=== PATIENT | female | born 1960 | race Hispanic/Latino ===

== ENCOUNTER → 2018-10-21 | Outpatient (CLI) | payer OTHER | END | disposition home or self-care (01) | LOC: RAH 10:32 | PROVIDERS: ATTEND Internal Medicine Gastroenterology | DX: R14.0 Abdominal distension (gaseous) (principal); R10.10 Upper abdominal pain, unspecified; R11.0 Nausea | CPT/HCPCS: 78264; A9541 ==

== ENCOUNTER → 2019-01-05 | Outpatient (CLI) | payer OTHER | END | disposition home or self-care (01) | LOC: RAH 08:06 | PROVIDERS: ATTEND Internal Medicine Gastroenterology | DX: K21.9 Gastro-esophageal reflux disease without esophagitis (principal); K76.0 Fatty (change of) liver, not elsewhere classified; Z90.49 Acquired absence of other specified parts of digestive tract | CPT/HCPCS: 74240; 76700 ==

== ENCOUNTER → 2019-11-08 | Outpatient (CLI) | payer OTHER | END | disposition home or self-care (01) | LOC: RAH 11:03 | PROVIDERS: ATTEND Internal Medicine Cardiovascular Disease | DX: Z13.6 Encounter for screening for cardiovascular disorders (principal) | CPT/HCPCS: 75571 ==

== ENCOUNTER 2020-02-10 10:30 | Emergency (ER) | payer OTHER ==
[2020-02-10] MEDS ORDERED: KETOROLAC TROMETHAMINE 60 MG/2 ML VIAL ONE (12:36)
[2020-02-10] MEDS ORDERED: ACETAMINOPHEN-CODEINE 300/30MG TAB ONE (12:37)
== END 2020-02-10 13:17 | disposition home or self-care (01) ==
LOC: EDH 10:30
DX: S33.5XXA Sprain of ligaments of lumbar spine, initial encounter (principal); S73.101A Unspecified sprain of right hip, initial encounter; I10 Essential (primary) hypertension; Z91.041 Radiographic dye allergy status; V49.9XXA Car occupant (driver) (passenger) injured in unspecified traffic accident, initial encounter; Y93.89 Activity, other specified; Y92.488 Other paved roadways as the place of occurrence of the external cause; Y99.8 Other external cause status
CPT/HCPCS: 72100; 73502; 96372; 99284; J1885

== ENCOUNTER 2020-05-27 22:07 | Inpatient (IN) | payer OTHER ==
[~2020-05-27] VITALS: Ht 149.9 cm; Wt 98.9 kg
[2020-05-27] MEDS ORDERED: LORAZEPAM 2 MG/ML 1 ML VIAL ONE (22:41)
[2020-05-27 22:49] LABS: ABG BASE EXCESS -1.6 mmol/L (-2.0-3.0); ABG HCO3 22.6 mmol/L (21.0-28.0); ABG OXYGEN SATURATION 85.4 % (95.0-99.0); ABG PCO2 37 mmHg (32-45)
[2020-05-27] MEDS ORDERED: CEFTRIAXONE 1G VIAL ONE (22:59)
[2020-05-27] MEDS ORDERED: DEXAMETHASONE SOD PHOSPHATE 10MG/ML 1ML VIAL ONE (22:59)
[2020-05-27] MEDS ORDERED: AZITHROMYCIN 250 MG TABLET PO ONE (23:00)
[2020-05-27 23:06] LABS: BASOPHILS % (AUTO) 0.2 % (0.0-5.0); HEMATOCRIT 43.3 % (36-48); LYMPHOCYTES % (AUTO) 9.8 % (21.0-51.0); MEAN CORPUSCULAR HEMOGLOBIN 29.7 pg (27.0-33.0); MEAN CORPUSCULAR HGB CONC 34.2 g/dL (32.0-36.0); MEAN CORPUSCULAR VOLUME 86.8 fL (79-99); MONOCYTES % (AUTO) 5.2 % (3.0-13.0); NUCLEATED RED BLOOD CELLS 0.2 % (0.0-0.19); PLATELET COUNT (AUTO) 353 K/uL (130-400); RED BLOOD CELL COUNT(AUTO) 4.99 MIL/uL (4.00-5.50); RED CELL DISTRIBUTION WIDTH 12.5 % (11.0-15.5); WHITE BLOOD COUNT (AUTO) 9.8 K/uL (4.8-10.8)
[2020-05-27] MEDS ORDERED: 0.9%NACL 50ML 50 ML IV ONE (23:10)
[2020-05-27 23:20] LABS: CREATININE 2.2 mg/dL (0.5-1.5); POTASSIUM 3.4 mmol/L (3.5-5.1)
[2020-05-27 23:21] LABS: INR 0.97 (0.85-1.15); PARTIAL THROMBOPLASTIN TIME 24.8 SEC (26.3-35.5); PROTHROMBIN TIME 10.5 SEC (9.6-11.6)
[2020-05-27] MEDS ORDERED: 0.9%NACL 1000ML 1,000 ML IV ONE (23:23)
[2020-05-27 23:24] LABS: ALBUMIN 2.7 g/dL (3.5-5.0); BILIRUBIN,TOTAL 0.9 mg/dL (0.2-1.0); TOTAL PROTEIN, SERUM 7.2 g/dL (6.0-8.3)
[2020-05-28] MEDS ORDERED: HYDRALAZINE 20MG/ML VIAL IV PRN
[2020-05-28] MEDS ORDERED: ACETAMINOPHEN 325 MG TAB PO PRN
[2020-05-28] MEDS ORDERED: ONDANSETRON 4MG INJ IV PRN
[2020-05-28] MEDS ORDERED: ERGOCALCIFEROL (VITAMIN D2) 50,000 UNIT CAPSULE PO ONE
[2020-05-28 01:27] LABS: CRP QUANTITATIVE 246.8 mg/L (0.00-9.0)
[2020-05-28] MEDS ORDERED: POTASSIUM CHLORIDE 10MEQ/100ML 100 ML IV ONE (02:00)
[2020-05-28] MEDS ORDERED: ALBUTEROL INHALER 90MCG/INH IH ONE (02:01)
[2020-05-28] MEDS ORDERED: ERGOCALCIFEROL (VITAMIN D2) 50,000 UNIT CAPSULE ONE (02:01)
[2020-05-28] MEDS ORDERED: LIDOCAINE HCL-MPF 1% 2ML VIAL ONE (02:03)
[2020-05-28 03:07] LABS: BASOPHILS % (AUTO) 0.3 % (0.0-5.0); EOSINOPHILS % (AUTO) 0.7 % (0.0-8.0); HEMATOCRIT 43.1 % (36-48); LYMPHOCYTES % (AUTO) 10.7 % (21.0-51.0); MEAN CORPUSCULAR HEMOGLOBIN 29.9 pg (27.0-33.0); MEAN CORPUSCULAR HGB CONC 33.6 g/dL (32.0-36.0); MEAN CORPUSCULAR VOLUME 88.9 fL (79-99); MONOCYTES % (AUTO) 4.4 % (3.0-13.0); NEUTROPHILS % (AUTO) 81.9 % (40.0-77.0); NUCLEATED RED BLOOD CELLS 0.2 % (0.0-0.19); PLATELET COUNT (AUTO) 307 K/uL (130-400); RED BLOOD CELL COUNT(AUTO) 4.85 MIL/uL (4.00-5.50); RED CELL DISTRIBUTION WIDTH 12.5 % (11.0-15.5); WHITE BLOOD COUNT (AUTO) 8.7 K/uL (4.8-10.8)
[2020-05-28 03:24] LABS: ALBUMIN 2.6 g/dL (3.5-5.0); BILIRUBIN,TOTAL 0.7 mg/dL (0.2-1.0); CREATININE 2.2 mg/dL (0.5-1.5); POTASSIUM 3.5 mmol/L (3.5-5.1); TOTAL PROTEIN, SERUM 7.2 g/dL (6.0-8.3)
[2020-05-28 03:42] LABS: CRP QUANTITATIVE 224.5 mg/L (0.00-9.0)
[2020-05-28] MEDS: ALBUTEROL INHALER 90MCG/INH IH SCH ×7 (04:00→22:52)
[2020-05-28] MEDS: SOLU-MEDROL 40MG VIAL IVP SCH ×4 (08:00→22:52)
[2020-05-28] MEDS ORDERED: NOREPINEPHRIN 4MG/NS 250ML 250 ML IV ONE (08:09)
[2020-05-28] MEDS: ASCORBIC ACID 500 MG TAB PO SCH (09:00)
[2020-05-28] MEDS ORDERED: ENOXAPARIN SODIUM 40 MG/0.4 ML SYRINGE SQ SCH (09:00)
[2020-05-28] MEDS: ENOXAPARIN SODIUM 40 MG/0.4 ML SYRINGE SQ SCH ×2 (09:00→22:48)
[2020-05-28] MEDS: ZINC SULFATE 220 CAPSULE PO SCH (09:00)
[2020-05-28 09:15] LABS: ABG BASE EXCESS -3.3 mmol/L (-2.0-3.0); ABG HCO3 21.2 mmol/L (21.0-28.0); ABG OXYGEN SATURATION 90.8 % (95.0-99.0); ABG PCO2 37 mmHg (32-45)
[2020-05-28] MEDS ORDERED: SOLU-MEDROL 40MG VIAL ONE (09:58)
[2020-05-28] MEDS ORDERED: ASCORBIC ACID 500 MG TAB ONE (09:58)
[2020-05-28] MEDS ORDERED: ZINC SULFATE 220 CAPSULE ONE (09:59)
[2020-05-28] MEDS ORDERED: ENOXAPARIN SODIUM 40 MG/0.4 ML SYRINGE SQ ONE (09:59)
[2020-05-28] MEDS ORDERED: FUROSEMIDE 40MG VIAL IV SCH ×2 (10:38→10:45)
[2020-05-28] MEDS: FUROSEMIDE 40MG VIAL IV SCH ×2 (10:45→22:52)
[2020-05-28] MEDS ORDERED: FUROSEMIDE 20MG VIAL ONE (11:11)
[2020-05-28] MEDS ORDERED: FUROSEMIDE 40MG VIAL ONE (11:11)
[2020-05-28 13:28] LABS: ABG BASE EXCESS -1.2 mmol/L (-2.0-3.0); ABG HCO3 23.4 mmol/L (21.0-28.0); ABG OXYGEN SATURATION 97.9 % (95.0-99.0); ABG PCO2 39 mmHg (32-45)
[2020-05-28 17:48] VITALS: BP 125/68
[2020-05-28] MEDS ORDERED: 0.9% NACL 250ML 250 ML IV ONE (22:25)
[2020-05-28] MEDS: AZITHROMYCIN 500MG+NS 250ML 250 ML IV SCH ×2 (22:49)
[2020-05-28] MEDS: POTASSIUM CHLORIDE 10MEQ/100ML 10 MEQ/100 ML ML IV SCH ×2 (22:49)
[2020-05-28] MEDS: CEFTRIAXONE 1G VIAL IV SCH ×2 (22:52)
[2020-05-28] MEDS ORDERED: DIAZEPAM 5 MG TABLET ONE (23:34)
[2020-05-28] MEDS: DIAZEPAM 5 MG TABLET PO PRN (23:38)
[2020-05-29] VITALS (15 sets, daily range): BP systolic 94–153; BP diastolic 43–76
[2020-05-29 03:57] LABS: BASOPHILS % (AUTO) 0.2 % (0.0-5.0); EOSINOPHILS % (AUTO) 0.5 % (0.0-8.0); HEMATOCRIT 38.4 % (36-48); LYMPHOCYTES % (AUTO) 7.8 % (21.0-51.0); MEAN CORPUSCULAR HEMOGLOBIN 29.4 pg (27.0-33.0); MEAN CORPUSCULAR HGB CONC 33.3 g/dL (32.0-36.0); MEAN CORPUSCULAR VOLUME 88.3 fL (79-99); MONOCYTES % (AUTO) 4.2 % (3.0-13.0); NEUTROPHILS % (AUTO) 85.5 % (40.0-77.0); NUCLEATED RED BLOOD CELLS 0.2 % (0.0-0.19); PLATELET COUNT (AUTO) 330 K/uL (130-400); RED BLOOD CELL COUNT(AUTO) 4.35 MIL/uL (4.00-5.50); RED CELL DISTRIBUTION WIDTH 12.4 % (11.0-15.5); WHITE BLOOD COUNT (AUTO) 12.4 K/uL (4.8-10.8)
[2020-05-29] MEDS: ALBUTEROL INHALER 90MCG/INH IH SCH ×5 (04:00→20:22)
[2020-05-29 04:08] LABS: ALBUMIN 2.5 g/dL (3.5-5.0); BILIRUBIN,TOTAL 0.4 mg/dL (0.2-1.0); CREATININE 1.8 mg/dL (0.5-1.5); CRP QUANTITATIVE 137.9 mg/L (0.00-9.0); MAGNESIUM 3.5 mg/dL (1.80-2.40); PHOSPHORUS 4.3 mg/dL (2.5-4.9); POTASSIUM 3.3 mmol/L (3.5-5.1); TOTAL PROTEIN, SERUM 6.9 g/dL (6.0-8.3)
[2020-05-29 04:39] LABS: ABG BASE EXCESS 1.9 mmol/L (-2.0-3.0); ABG HCO3 27.1 mmol/L (21.0-28.0); ABG OXYGEN SATURATION 87.8 % (95.0-99.0); ABG PCO2 45 mmHg (32-45)
[2020-05-29] MEDS ORDERED: 0.9% NACL 250ML 250 ML IV ONE ×2 (05:04→14:24)
[2020-05-29] MEDS: ENOXAPARIN SODIUM 40 MG/0.4 ML SYRINGE SQ SCH ×2 (08:57→20:32)
[2020-05-29] MEDS: ZINC SULFATE 220 CAPSULE PO SCH (08:57)
[2020-05-29] MEDS: SOLU-MEDROL 40MG VIAL IVP SCH ×3 (08:57→23:13)
[2020-05-29] MEDS: ASCORBIC ACID 500 MG TAB PO SCH (08:57)
[2020-05-29] MEDS: FUROSEMIDE 20MG VIAL IV SCH ×2 (09:59→20:59)
[2020-05-29] MEDS ORDERED: THIAMINE HCL 100 MG/ML 2ML VIAL IVP SCH (12:30)
[2020-05-29] MEDS ORDERED: PHARMACY COMMUNICATION MISC SCH (14:30)
[2020-05-29 17:03] LABS: APPEARANCE,URINE Clear (CLEAR); BILIRUBIN,URINE Negative (NEGATIVE); COLOR,URINE Yellow (YELLOW); GLUCOSE, URINE (UA) Negative (NEGATIVE); KETONES,URINE Negative (NEGATIVE); LEUKOCYTE ESTERASE ,URINE Negative (NEGATIVE); NITRATE,URINE Negative (NEGATIVE); OCCULT BLOOD,URINE Negative (NEGATIVE); PH,URINE 5.5 (5.0-8.0); PROTEIN,URINE Trace mg/dL (NEGATIVE)
[2020-05-29 17:30] LABS: RBC,URINE 0-1 /HPF (0-1)
[2020-05-29 17:31] LABS: BACTERIA,URINE Few /HPF (None Seen); OTHER CASTS, URINE WBC CASTS 1+ /LPF (None Seen); SQUAMOUS EPITHELIAL CELL,UR Few /HPF (0-2)
[2020-05-29] MEDS: THIAMINE HCL 100 MG/ML 2ML VIAL IVP SCH (17:48)
[2020-05-29] MEDS ORDERED: ESCI-8 PO (18:25)
[2020-05-29] MEDS ORDERED: BUPR200T3 PO (18:29)
[2020-05-29] MEDS ORDERED: HYDR25TA PO (18:29)
[2020-05-29] MEDS ORDERED: ESOM40CA54 PO (18:29)
[2020-05-29] MEDS ORDERED: LOSA100T58 PO (18:29)
[2020-05-29] MEDS: AZITHROMYCIN 500MG+NS 250ML 250 ML IV SCH (23:13)
[2020-05-29] MEDS: CEFTRIAXONE 1G VIAL IV SCH (23:13)
[2020-05-30] VITALS (8 sets, daily range): BP systolic 114–154; BP diastolic 56–81
[2020-05-30] MEDS: POTASSIUM CHLORIDE 10MEQ/100ML 10 MEQ/100 ML ML IV SCH
[2020-05-30] MEDS: ALBUTEROL INHALER 90MCG/INH IH SCH ×6 (04:13→21:45)
[2020-05-30 04:15] LABS: BASOPHILS % (AUTO) 0.1 % (0.0-5.0); HEMATOCRIT 38.3 % (36-48); LYMPHOCYTES % (AUTO) 6.2 % (21.0-51.0); MEAN CORPUSCULAR HEMOGLOBIN 29.8 pg (27.0-33.0); MEAN CORPUSCULAR HGB CONC 33.7 g/dL (32.0-36.0); MEAN CORPUSCULAR VOLUME 88.5 fL (79-99); NEUTROPHILS % (AUTO) 86.1 % (40.0-77.0); PLATELET COUNT (AUTO) 323 K/uL (130-400); RED BLOOD CELL COUNT(AUTO) 4.33 MIL/uL (4.00-5.50); RED CELL DISTRIBUTION WIDTH 12.4 % (11.0-15.5); WHITE BLOOD COUNT (AUTO) 13.7 K/uL (4.8-10.8)
[2020-05-30 04:32] LABS: ALBUMIN 2.6 g/dL (3.5-5.0); BILIRUBIN,TOTAL 0.4 mg/dL (0.2-1.0); CREATININE 1.3 mg/dL (0.5-1.5); CRP QUANTITATIVE 53.8 mg/L (0.00-9.0); MAGNESIUM 2.8 mg/dL (1.80-2.40); PHOSPHORUS 3.2 mg/dL (2.5-4.9); POTASSIUM 3.6 mmol/L (3.5-5.1); TOTAL PROTEIN, SERUM 6.8 g/dL (6.0-8.3); URIC ACID 7.6 mg/dL (2.6-7.2)
[2020-05-30] MEDS: ASCORBIC ACID 500 MG TAB PO SCH (08:31)
[2020-05-30] MEDS: ZINC SULFATE 220 CAPSULE PO SCH (08:32)
[2020-05-30] MEDS: ASPIRIN 325MG EC TAB PO SCH (08:32)
[2020-05-30] MEDS: SOLU-MEDROL 40MG VIAL IVP SCH ×2 (08:33→15:11)
[2020-05-30] MEDS: ENOXAPARIN SODIUM 40 MG/0.4 ML SYRINGE SQ SCH ×2 (08:33→21:44)
[2020-05-30] MEDS: ACETAMINOPHEN 325 MG TAB PO PRN (08:59)
[2020-05-30] MEDS: THIAMINE HCL 100 MG/ML 2ML VIAL IVP SCH (09:34)
[2020-05-30] MEDS ORDERED: 0.9% NACL 250ML 250 ML IV ONE (14:44)
[2020-05-30] MEDS: PHARMACY COMMUNICATION** REMDESIVIR ORDER MISC SCH ×2 (15:10→21:45)
[2020-05-30] MEDS ORDERED: PHARMACY COMMUNICATION MISC SCH (16:15)
[2020-05-30] MEDS ORDERED: REMDESIVIR (EUA) 520 200 MG in 0.9% NACL 250ML 250 ML IV ONE (20:00)
[2020-05-30] MEDS ORDERED: COMPOUND IV REFRIGERATED 1 EACH IVSOLN MISC PRN (20:00)
[2020-05-30] MEDS: Vitamin B Complex/Vit C/Folic Acid PO SCH (21:44)
[2020-05-31] MEDS: POTASSIUM CHLORIDE 10MEQ/100ML 10 MEQ/100 ML ML IV SCH
[2020-05-31] MEDS: CEFTRIAXONE 1G VIAL IV SCH (00:30)
[2020-05-31] MEDS: AZITHROMYCIN 500MG+NS 250ML 250 ML IV SCH (00:30)
[2020-05-31] MEDS: ALBUTEROL INHALER 90MCG/INH IH SCH ×6 (00:33→21:24)
[2020-05-31] MEDS: SOLU-MEDROL 40MG VIAL IVP SCH ×3 (00:33→17:10)
[2020-05-31] MEDS: PHARMACY COMMUNICATION** REMDESIVIR ORDER MISC SCH ×2 (00:34→04:00)
[2020-05-31 03:59] VITALS: BP 157/68
[2020-05-31 04:56] LABS: BASOPHILS % (AUTO) 0.2 % (0.0-5.0); HEMATOCRIT 37.3 % (36-48); LYMPHOCYTES % (AUTO) 5.4 % (21.0-51.0); MEAN CORPUSCULAR HEMOGLOBIN 29.1 pg (27.0-33.0); MEAN CORPUSCULAR VOLUME 88.4 fL (79-99); MONOCYTES % (AUTO) 2.9 % (3.0-13.0); NEUTROPHILS % (AUTO) 86.6 % (40.0-77.0); PLATELET COUNT (AUTO) 284 K/uL (130-400); RED BLOOD CELL COUNT(AUTO) 4.22 MIL/uL (4.00-5.50); RED CELL DISTRIBUTION WIDTH 12.2 % (11.0-15.5); WHITE BLOOD COUNT (AUTO) 13.1 K/uL (4.8-10.8)
[2020-05-31 05:11] LABS: ALBUMIN 2.5 g/dL (3.5-5.0); BILIRUBIN,DIRECT 0.2 mg/dL (0.0-0.3); BILIRUBIN,TOTAL 0.3 mg/dL (0.2-1.0); CREATININE 1.2 mg/dL (0.5-1.5); MAGNESIUM 2.3 mg/dL (1.80-2.40); PHOSPHORUS 2.7 mg/dL (2.5-4.9); POTASSIUM 3.5 mmol/L (3.5-5.1); TOTAL PROTEIN, SERUM 6.4 g/dL (6.0-8.3); URIC ACID 6.4 mg/dL (2.6-7.2)
[2020-05-31] MEDS ORDERED: PHARMACY COMMUNICATION MISC SCH ×2 (06:00→09:00)
[2020-05-31 07:00] VITALS: BP 149/74
[2020-05-31] MEDS: ASPIRIN 325MG EC TAB PO SCH (07:56)
[2020-05-31] MEDS: ASCORBIC ACID 500 MG TAB PO SCH (07:56)
[2020-05-31] MEDS: Vitamin B Complex/Vit C/Folic Acid PO SCH (07:56)
[2020-05-31] MEDS: ZINC SULFATE 220 CAPSULE PO SCH (07:56)
[2020-05-31] MEDS: ENOXAPARIN SODIUM 40 MG/0.4 ML SYRINGE SQ SCH ×2 (07:57→21:00)
[2020-05-31] MEDS: THIAMINE HCL 100 MG/ML 2ML VIAL IVP SCH (09:00)
[2020-05-31 11:00] VITALS: BP 160/82
[2020-05-31 15:00] VITALS: BP 149/75
[2020-05-31 16:53] LABS: APPEARANCE,URINE Clear (CLEAR); BILIRUBIN,URINE Negative (NEGATIVE); COLOR,URINE Dark Yellow (YELLOW); GLUCOSE, URINE (UA) Negative (NEGATIVE); KETONES,URINE Negative (NEGATIVE); LEUKOCYTE ESTERASE ,URINE Negative (NEGATIVE); NITRATE,URINE Negative (NEGATIVE); OCCULT BLOOD,URINE Negative (NEGATIVE); PROTEIN,URINE POS 1+ mg/dL (NEGATIVE)
[2020-05-31 17:05] LABS: BACTERIA,URINE Few /HPF (None Seen); RBC,URINE 0-1 /HPF (0-1); WBC,URINE 0-1 /HPF (0-1)
[2020-05-31] MEDS: PHENAZOPYRIDINE HCL 200 MG TABLET PO SCH ×2 (17:20→21:25)
[2020-05-31] MEDS: REMDESIVIR (EUA) 520 100 MG in 0.9% NACL 250ML 250 ML IV SCH (21:25)
[2020-05-31] MEDS: ENOXAPARIN SODIUM 80 MG/0.8 ML SQ SCH (21:25)
[2020-05-31] MEDS: DIAZEPAM 5 MG TABLET PO PRN (23:16)
[2020-06-01] VITALS (26 sets, daily range): BP systolic 84–203; BP diastolic 42–120
[2020-06-01] MEDS: AZITHROMYCIN 500MG+NS 250ML 250 ML IV SCH (00:16)
[2020-06-01] MEDS: ALBUTEROL INHALER 90MCG/INH IH SCH ×3 (00:16→12:00)
[2020-06-01] MEDS: SOLU-MEDROL 40MG VIAL IVP SCH (00:17)
[2020-06-01] MEDS: CEFTRIAXONE 1G VIAL IV SCH (00:17)
[2020-06-01] MEDS: POTASSIUM CHLORIDE 10MEQ/100ML 10 MEQ/100 ML ML IV SCH (01:18)
[2020-06-01 05:04] LABS: BASOPHILS % (AUTO) 0.4 % (0.0-5.0); HEMATOCRIT 38.7 % (36-48); MEAN CORPUSCULAR HEMOGLOBIN 29.5 pg (27.0-33.0); MEAN CORPUSCULAR HGB CONC 33.6 g/dL (32.0-36.0); MONOCYTES % (AUTO) 2.6 % (3.0-13.0); NEUTROPHILS % (AUTO) 83.7 % (40.0-77.0); PLATELET COUNT (AUTO) 280 K/uL (130-400); RED CELL DISTRIBUTION WIDTH 12.4 % (11.0-15.5); WHITE BLOOD COUNT (AUTO) 14.1 K/uL (4.8-10.8)
[2020-06-01 05:20] LABS: ABG BASE EXCESS 3.9 mmol/L (-2.0-3.0); ABG HCO3 27.3 mmol/L (21.0-28.0); ABG OXYGEN SATURATION 89.3 % (95.0-99.0); ABG PCO2 37 mmHg (32-45)
[2020-06-01 05:26] LABS: ALBUMIN 2.5 g/dL (3.5-5.0); BILIRUBIN,TOTAL 0.4 mg/dL (0.2-1.0); CREATININE 0.9 mg/dL (0.5-1.5); CRP QUANTITATIVE 42.8 mg/L (0.00-9.0); POTASSIUM 3.7 mmol/L (3.5-5.1); TOTAL PROTEIN, SERUM 6.4 g/dL (6.0-8.3)
[2020-06-01] MEDS: PHENAZOPYRIDINE HCL 200 MG TABLET PO SCH ×3 (09:00→21:05)
[2020-06-01] MEDS: ZINC SULFATE 220 CAPSULE PO SCH (09:00)
[2020-06-01] MEDS: THIAMINE HCL 100 MG/ML 2ML VIAL IVP SCH (09:00)
[2020-06-01] MEDS: ASPIRIN 325MG EC TAB PO SCH (09:00)
[2020-06-01] MEDS: Vitamin B Complex/Vit C/Folic Acid PO SCH (09:00)
[2020-06-01] MEDS: ENOXAPARIN SODIUM 80 MG/0.8 ML SQ SCH ×2 (09:00→20:53)
[2020-06-01] MEDS: ASCORBIC ACID 500 MG TAB PO SCH (09:00)
[2020-06-01] MEDS ORDERED: LORAZEPAM 2 MG/ML 1 ML VIAL ONE (10:06)
[2020-06-01] MEDS ORDERED: PROPOFOL 1000 MG/100 ML 100 ML IV ONE (10:44)
[2020-06-01] MEDS ORDERED: NOREPINEPHRIN 4MG/NS 250ML 250 ML IV SCH (11:00)
[2020-06-01] MEDS ORDERED: MIDAZOLAM 100MG-0.9% NS 100ML 100ML BAG IV ONE (11:00)
[2020-06-01] MEDS ORDERED: MIDAZOLAM 100MG-0.9% NS 100ML 100 ML IV SCH (11:15)
[2020-06-01 11:54] LABS: CREATININE 0.9 mg/dL (0.5-1.5); POTASSIUM 3.5 mmol/L (3.5-5.1)
[2020-06-01] MEDS ORDERED: DEXAMETHASONE 10MG/ML 1ML VIAL 6 MG in 0.9%NACL 50ML 50 ML IV SCH ×2 (12:00→12:15)
[2020-06-01] MEDS: FUROSEMIDE 20MG VIAL IV SCH ×2 (12:00→20:52)
[2020-06-01 12:01] LABS: ABG BASE EXCESS -0.2 mmol/L (-2.0-3.0); ABG HCO3 23.7 mmol/L (21.0-28.0); ABG OXYGEN SATURATION 96.9 % (95.0-99.0); ABG PCO2 37 mmHg (32-45)
[2020-06-01] MEDS ORDERED: PHARMACY COMMUNICATION MISC SCH (13:30)
[2020-06-01] MEDS ORDERED: VECURONIUM 10MG/10ML IV SCH (14:00)
[2020-06-01] MEDS ORDERED: NACL 0.9% IV SCH ×2 (14:00→14:15)
[2020-06-01] MEDS ORDERED: CISATRACURIUM BESYLATE IV SCH ×2 (14:00→14:15)
[2020-06-01] MEDS ORDERED: RENAL DOSE IV SCH (14:30)
[2020-06-01] MEDS ORDERED: ROCURONIUM 10MG/1ML SYR 10 MG/ML ML IV ONE (15:00)
[2020-06-01] MEDS: CISATRACURIUM BESYLATE 100 MG in 0.9%NACL 100ML 100 ML IV SCH (15:11)
[2020-06-01] MEDS ORDERED: VANCOMYCIN PROTOCOL PER PHARMACY IV SCH (15:30)
[2020-06-01] MEDS ORDERED: VANCOMYCIN 1G 1.5 GM in 0.9% NACL 250ML 250 ML IV ONE (16:00)
[2020-06-01] MEDS: MEROPENEM 500 MG VIAL IVP SCH (16:09)
[2020-06-01] MEDS: REMDESIVIR (EUA) 520 100 MG in 0.9% NACL 250ML 250 ML IV SCH (21:07)
[2020-06-01] MEDS: PROPOFOL 1000 MG/100 ML 100 ML IV SCH (23:03)
[2020-06-02] VITALS (47 sets, daily range): BP systolic 89–182; BP diastolic 30–86
[2020-06-02] MEDS: MEROPENEM 500 MG VIAL IVP SCH ×3 (00:12→15:25)
[2020-06-02] MEDS: FUROSEMIDE 20MG VIAL IV SCH ×3 (03:36→20:21)
[2020-06-02] MEDS: PROPOFOL 1000 MG/100 ML 100 ML IV SCH ×3 (03:41→13:56)
[2020-06-02 04:42] LABS: BASOPHILS % (AUTO) 0.4 % (0.0-5.0); HEMATOCRIT 38.6 % (36-48); LYMPHOCYTES % (AUTO) 7.3 % (21.0-51.0); MEAN CORPUSCULAR HEMOGLOBIN 29.2 pg (27.0-33.0); MEAN CORPUSCULAR HGB CONC 32.1 g/dL (32.0-36.0); MEAN CORPUSCULAR VOLUME 90.8 fL (79-99); MONOCYTES % (AUTO) 1.1 % (3.0-13.0); NEUTROPHILS % (AUTO) 81.8 % (40.0-77.0); PLATELET COUNT (AUTO) 271 K/uL (130-400); RED BLOOD CELL COUNT(AUTO) 4.25 MIL/uL (4.00-5.50); RED CELL DISTRIBUTION WIDTH 12.9 % (11.0-15.5); WHITE BLOOD COUNT (AUTO) 13.5 K/uL (4.8-10.8)
[2020-06-02 05:08] LABS: ALBUMIN 2.2 g/dL (3.5-5.0); BILIRUBIN,DIRECT 0.1 mg/dL (0.0-0.3); BILIRUBIN,TOTAL 0.6 mg/dL (0.2-1.0); CRP QUANTITATIVE 125.7 mg/L (0.00-9.0); TOTAL PROTEIN, SERUM 5.7 g/dL (6.0-8.3)
[2020-06-02 05:20] LABS: MAGNESIUM 1.9 mg/dL (1.80-2.40); PHOSPHORUS 4.1 mg/dL (2.5-4.9); POTASSIUM 3.4 mmol/L (3.5-5.1)
[2020-06-02] MEDS: VANCOMYCIN 750MG + NS 250 ML IV SCH ×4 (06:28→17:52)
[2020-06-02 06:59] LABS: ABG BASE EXCESS 3.7 mmol/L (-2.0-3.0); ABG HCO3 26.2 mmol/L (21.0-28.0); ABG OXYGEN SATURATION 95.7 % (95.0-99.0); ABG PCO2 33 mmHg (32-45)
[2020-06-02] MEDS ORDERED: CISATRACURIUM BESYLATE IV SCH (07:15)
[2020-06-02] MEDS ORDERED: NACL 0.9% IV SCH (07:15)
[2020-06-02] MEDS: PHENAZOPYRIDINE HCL 200 MG TABLET PO SCH ×3 (08:32→21:21)
[2020-06-02] MEDS: THIAMINE HCL 100 MG/ML 2ML VIAL IVP SCH (08:32)
[2020-06-02] MEDS: ASCORBIC ACID 500 MG TAB PO SCH (08:40)
[2020-06-02] MEDS: Vitamin B Complex/Vit C/Folic Acid PO SCH (08:40)
[2020-06-02] MEDS: ASPIRIN 325MG EC TAB PO SCH (08:40)
[2020-06-02] MEDS: ENOXAPARIN SODIUM 80 MG/0.8 ML SQ SCH ×2 (08:40→20:23)
[2020-06-02] MEDS: ZINC SULFATE 220 CAPSULE PO SCH (08:41)
[2020-06-02] MEDS ORDERED: DEXAMETHASONE 4 MG TAB PO SCH (09:00)
[2020-06-02] MEDS ORDERED: POTASSIUM CHLORIDE 20MEQ/100ML 100 ML IV PRN (09:30)
[2020-06-02] MEDS ORDERED: LIDOCAINE HCL-MPF 1% 2ML VIAL IV PRN (09:30)
[2020-06-02] MEDS ORDERED: MIDAZOLAM 50MG-0.9% NS 50ML 50 ML BAG IV SCH (09:30)
[2020-06-02] MEDS ORDERED: POTASSIUM CHLORIDE 20 MEQ/100 ML BAG IV SCH (10:15)
[2020-06-02] MEDS ORDERED: POTASSIUM CHLORIDE 20MEQ/100ML 100 ML IV SCH (11:45)
[2020-06-02] MEDS: MIDAZOLAM 100MG-0.9% NS 100ML 100 ML IV SCH (13:45)
[2020-06-02] MEDS ORDERED: FENTANYL CITRATE PF 0.05 MG/ML 1,000 MCG in 0.9%NACL 100ML 100 ML IVPB SCH (15:00)
[2020-06-02] MEDS ORDERED: FENTANYL CITRATE PF 50 MCG/1 ML 2ML VIAL IVP STA (15:18)
[2020-06-02] MEDS: FENTANYL 2500MCG+NS 250ML 250 ML IV SCH (15:42)
[2020-06-02] MEDS: REMDESIVIR (EUA) 520 100 MG in 0.9% NACL 250ML 250 ML IV SCH (20:00)
[2020-06-02] MEDS: POTASSIUM CHLORIDE 20MEQ/100ML 100 ML IV PRN (20:37)
[2020-06-03] VITALS (63 sets, daily range): BP systolic 104–173; BP diastolic 60–111
[2020-06-03] MEDS: MEROPENEM 500 MG VIAL IVP SCH ×3 (02:45→17:19)
[2020-06-03 04:05] LABS: HEMATOCRIT 42.5 % (36-48); MEAN CORPUSCULAR HEMOGLOBIN 29.6 pg (27.0-33.0); MEAN CORPUSCULAR VOLUME 92.6 fL (79-99); RED BLOOD CELL COUNT(AUTO) 4.59 MIL/uL (4.00-5.50); RED CELL DISTRIBUTION WIDTH 13.2 % (11.0-15.5); WHITE BLOOD COUNT (AUTO) 13.7 K/uL (4.8-10.8)
[2020-06-03 04:24] LABS: ALBUMIN 2.1 g/dL (3.5-5.0); BILIRUBIN,DIRECT 0.2 mg/dL (0.0-0.3); BILIRUBIN,TOTAL 0.6 mg/dL (0.2-1.0); CREATININE 1.1 mg/dL (0.5-1.5); POTASSIUM 4.1 mmol/L (3.5-5.1); TOTAL PROTEIN, SERUM 6.1 g/dL (6.0-8.3)
[2020-06-03 04:44] LABS: ABG HCO3 31.9 mmol/L (21.0-28.0); ABG OXYGEN SATURATION 90.7 % (95.0-99.0); ABG PCO2 56 mmHg (32-45)
[2020-06-03 05:08] LABS: CRP QUANTITATIVE 243.8 mg/L (0.00-9.0)
[2020-06-03] MEDS: VANCOMYCIN 750MG + NS 250 ML IV SCH ×4 (06:39→17:20)
[2020-06-03 07:06] LABS: ABG BASE EXCESS 6.1 mmol/L (-2.0-3.0); ABG HCO3 32.4 mmol/L (21.0-28.0); ABG OXYGEN SATURATION 92.3 % (95.0-99.0); ABG PCO2 53 mmHg (32-45)
[2020-06-03] MEDS ORDERED: PHARMACY COMMUNICATION MISC SCH (08:45)
[2020-06-03] MEDS: ZINC SULFATE 220 CAPSULE PO SCH (08:52)
[2020-06-03] MEDS: ENOXAPARIN SODIUM 80 MG/0.8 ML SQ SCH ×2 (08:52→22:16)
[2020-06-03] MEDS: Vitamin B Complex/Vit C/Folic Acid PO SCH (08:52)
[2020-06-03] MEDS: ASCORBIC ACID 500 MG TAB PO SCH (08:52)
[2020-06-03] MEDS: ASPIRIN 325MG EC TAB PO SCH (08:53)
[2020-06-03] MEDS: THIAMINE HCL 100 MG/ML 2ML VIAL IVP SCH (08:53)
[2020-06-03] MEDS ORDERED: CISATRACURIUM BESYLATE IV SCH (09:45)
[2020-06-03] MEDS ORDERED: NACL 0.9% IV SCH (09:45)
[2020-06-03] MEDS: MIDAZOLAM 100MG-0.9% NS 100ML 100 ML IV SCH (09:59)
[2020-06-03] MEDS: REMDESIVIR (EUA) 520 100 MG in 0.9% NACL 250ML 250 ML IV SCH (10:20)
[2020-06-03] MEDS: FUROSEMIDE 20MG VIAL IV SCH ×2 (11:35→22:15)
[2020-06-03] MEDS: DEXAMETHASONE SOD PHOSPHATE 4 MG/ML 1ML VIAL IVP SCH (22:16)
[2020-06-04] VITALS (52 sets, daily range): BP systolic 101–158; BP diastolic 60–82
[2020-06-04] MEDS: FUROSEMIDE 20MG VIAL IV SCH ×3 (04:00→21:26)
[2020-06-04 04:04] LABS: MEAN CORPUSCULAR HEMOGLOBIN 29.2 pg (27.0-33.0); MEAN CORPUSCULAR HGB CONC 31.3 g/dL (32.0-36.0); MEAN CORPUSCULAR VOLUME 93.3 fL (79-99); RED BLOOD CELL COUNT(AUTO) 4.18 MIL/uL (4.00-5.50); RED CELL DISTRIBUTION WIDTH 13.4 % (11.0-15.5); WHITE BLOOD COUNT (AUTO) 12.8 K/uL (4.8-10.8)
[2020-06-04] MEDS: VANCOMYCIN 750MG + NS 250 ML IV SCH ×4 (06:34→21:28)
[2020-06-04 07:04] LABS: ABG BASE EXCESS 8.2 mmol/L (-2.0-3.0); ABG HCO3 33.8 mmol/L (21.0-28.0); ABG OXYGEN SATURATION 88.7 % (95.0-99.0); ABG PCO2 51 mmHg (32-45)
[2020-06-04] MEDS ORDERED: DOCUSATE SODIUM 100 MG CAP PO SCH (08:45)
[2020-06-04] MEDS: DEXAMETHASONE SOD PHOSPHATE 4 MG/ML 1ML VIAL IVP SCH ×2 (09:50→21:26)
[2020-06-04] MEDS: Vitamin B Complex/Vit C/Folic Acid PO SCH (09:51)
[2020-06-04] MEDS: THIAMINE HCL 100 MG/ML 2ML VIAL IVP SCH (09:51)
[2020-06-04] MEDS: ENOXAPARIN SODIUM 80 MG/0.8 ML SQ SCH ×2 (09:51→21:27)
[2020-06-04] MEDS: ASCORBIC ACID 500 MG TAB PO SCH (09:51)
[2020-06-04] MEDS: ZINC SULFATE 220 CAPSULE PO SCH (09:52)
[2020-06-04] MEDS: REMDESIVIR (EUA) 520 100 MG in 0.9% NACL 250ML 250 ML IV SCH (09:55)
[2020-06-04] MEDS: MEROPENEM 500 MG VIAL IVP SCH ×3 (09:55→15:50)
[2020-06-04] MEDS: ASPIRIN 325MG EC TAB PO SCH (09:55)
[2020-06-04] MEDS: CISATRACURIUM BESYLATE 100 MG in 0.9%NACL 100ML 100 ML IV SCH (11:50)
[2020-06-04] MEDS: MIDAZOLAM 100MG-0.9% NS 100ML 100 ML IV SCH (11:51)
[2020-06-04] MEDS ORDERED: VANCOMYCIN 750MG + NS 250 ML IV SCH ×2 (12:00)
[2020-06-04] MEDS ORDERED: REMDESIVIR (EUA) 520 100 MG in 0.9% NACL 250ML 250 ML IV ONE (14:00)
[2020-06-04] MEDS ORDERED: CISATRACURIUM BESYLATE IV SCH (15:30)
[2020-06-04] MEDS ORDERED: NACL 0.9% IV SCH (15:30)
[2020-06-04] MEDS: DOCUSATE NA 100MG/10ML UDCUP PO SCH (21:27)
[2020-06-04] MEDS ORDERED: MAGNESIUM HYDROXIDE 30 ML/UDCUP PO PRN (22:15)
[2020-06-05] VITALS (53 sets, daily range): BP systolic 124–169; BP diastolic 64–90
[2020-06-05 04:57] LABS: BASOPHILS % (AUTO) 0.2 % (0.0-5.0); HEMATOCRIT 39.5 % (36-48); LYMPHOCYTES % (AUTO) 3.9 % (21.0-51.0); MEAN CORPUSCULAR HEMOGLOBIN 29.3 pg (27.0-33.0); MEAN CORPUSCULAR HGB CONC 31.6 g/dL (32.0-36.0); MEAN CORPUSCULAR VOLUME 92.7 fL (79-99); NEUTROPHILS % (AUTO) 88.7 % (40.0-77.0); PLATELET COUNT (AUTO) 262 K/uL (130-400); RED BLOOD CELL COUNT(AUTO) 4.26 MIL/uL (4.00-5.50); RED CELL DISTRIBUTION WIDTH 13.2 % (11.0-15.5); WHITE BLOOD COUNT (AUTO) 12.1 K/uL (4.8-10.8)
[2020-06-05] MEDS: FUROSEMIDE 20MG VIAL IV SCH ×2 (05:11→21:06)
[2020-06-05 05:30] LABS: ALBUMIN 1.9 g/dL (3.5-5.0); BILIRUBIN,DIRECT 0.1 mg/dL (0.0-0.3); BILIRUBIN,TOTAL 0.3 mg/dL (0.2-1.0); CRP QUANTITATIVE 121.5 mg/L (0.00-9.0); POTASSIUM 3.8 mmol/L (3.5-5.1); THYROID STIMULATING HORMONE 0.33 uIU/mL (0.36-3.74)
[2020-06-05 08:17] LABS: ABG BASE EXCESS 6.6 mmol/L (-2.0-3.0); ABG HCO3 30.9 mmol/L (21.0-28.0); ABG PCO2 43 mmHg (32-45)
[2020-06-05] MEDS: DOCUSATE NA 100MG/10ML UDCUP PO SCH ×2 (08:20→21:07)
[2020-06-05] MEDS: LACTULOSE 20 GM/30 ML UDCUP PO PRN (08:20)
[2020-06-05] MEDS: ENOXAPARIN SODIUM 80 MG/0.8 ML SQ SCH ×2 (08:20→21:06)
[2020-06-05] MEDS: MEROPENEM 500 MG VIAL IVP SCH ×3 (08:20→17:23)
[2020-06-05] MEDS: Vitamin B Complex/Vit C/Folic Acid PO SCH (08:20)
[2020-06-05] MEDS: ASPIRIN 325MG EC TAB PO SCH (08:20)
[2020-06-05] MEDS: DEXAMETHASONE SOD PHOSPHATE 4 MG/ML 1ML VIAL IVP SCH ×2 (08:20→21:06)
[2020-06-05] MEDS: ASCORBIC ACID 500 MG TAB PO SCH (08:21)
[2020-06-05] MEDS: ZINC SULFATE 220 CAPSULE PO SCH (08:21)
[2020-06-05 08:40] LABS: HEMOGLOBIN A1C 6.8 % (4.0-6.0)
[2020-06-05] MEDS: VANCOMYCIN 750MG + NS 250 ML IV SCH ×4 (08:48→21:12)
[2020-06-05] MEDS: THIAMINE HCL 100 MG/ML 2ML VIAL IVP SCH (09:19)
[2020-06-05] MEDS ORDERED: COMPOUND IV REFRIGERATED 1 EACH IVSOLN MISC PRN (12:45)
[2020-06-05 13:48] LABS: CREATININE 0.8 mg/dL (0.5-1.5); MAGNESIUM 2.3 mg/dL (1.80-2.40); POTASSIUM 4.8 mmol/L (3.5-5.1)
[2020-06-05] MEDS: INSULIN HUMULIN R 100 UNIT/ML 3ML SQ SCH ×3 (13:59→21:00)
[2020-06-05] MEDS: INSULIN GLARGINE 100 UNITS/ML 10 ML VIAL SQ SCH (21:00)
[2020-06-06] VITALS (70 sets, daily range): BP systolic 88–199; BP diastolic 54–124
[2020-06-06] MEDS: MEROPENEM 500 MG VIAL IVP SCH ×3 (00:36→16:23)
[2020-06-06 04:07] LABS: BASOPHILS % (AUTO) 0.2 % (0.0-5.0); HEMATOCRIT 37.6 % (36-48); LYMPHOCYTES % (AUTO) 3.4 % (21.0-51.0); MEAN CORPUSCULAR HEMOGLOBIN 29.5 pg (27.0-33.0); MEAN CORPUSCULAR HGB CONC 31.6 g/dL (32.0-36.0); MEAN CORPUSCULAR VOLUME 93.1 fL (79-99); MONOCYTES % (AUTO) 4.8 % (3.0-13.0); NEUTROPHILS % (AUTO) 88.9 % (40.0-77.0); PLATELET COUNT (AUTO) 267 K/uL (130-400); RED BLOOD CELL COUNT(AUTO) 4.04 MIL/uL (4.00-5.50); RED CELL DISTRIBUTION WIDTH 12.9 % (11.0-15.5); WHITE BLOOD COUNT (AUTO) 15.5 K/uL (4.8-10.8)
[2020-06-06 04:11] LABS: ABG BASE EXCESS 6.8 mmol/L (-2.0-3.0); ABG HCO3 32.4 mmol/L (21.0-28.0); ABG OXYGEN SATURATION 97.3 % (95.0-99.0); ABG PCO2 50 mmHg (32-45)
[2020-06-06 04:28] LABS: ALBUMIN 1.7 g/dL (3.5-5.0); BILIRUBIN,DIRECT 0.1 mg/dL (0.0-0.3); BILIRUBIN,TOTAL 0.4 mg/dL (0.2-1.0); CREATININE 0.9 mg/dL (0.5-1.5); CRP QUANTITATIVE 42.6 mg/L (0.00-9.0); MAGNESIUM 2.2 mg/dL (1.80-2.40); PHOSPHORUS 4.8 mg/dL (2.5-4.9); POTASSIUM 4.3 mmol/L (3.5-5.1); TOTAL PROTEIN, SERUM 5.4 g/dL (6.0-8.3)
[2020-06-06] MEDS: INSULIN HUMULIN R 100 UNIT/ML 3ML SQ SCH ×3 (07:30→21:00)
[2020-06-06] MEDS: ASCORBIC ACID 500 MG TAB PO SCH (08:57)
[2020-06-06] MEDS: ZINC SULFATE 220 CAPSULE PO SCH (08:57)
[2020-06-06] MEDS: Vitamin B Complex/Vit C/Folic Acid PO SCH (08:58)
[2020-06-06] MEDS: DOCUSATE NA 100MG/10ML UDCUP PO SCH ×2 (08:58→20:37)
[2020-06-06] MEDS: DEXAMETHASONE SOD PHOSPHATE 4 MG/ML 1ML VIAL IVP SCH ×2 (08:58→20:37)
[2020-06-06] MEDS: FUROSEMIDE 20MG VIAL IV SCH ×2 (08:58→20:36)
[2020-06-06] MEDS: ASPIRIN 325MG EC TAB PO SCH (08:58)
[2020-06-06] MEDS: ENOXAPARIN SODIUM 80 MG/0.8 ML SQ SCH ×2 (08:59→20:38)
[2020-06-06] MEDS: THIAMINE HCL 100 MG/ML 2ML VIAL IVP SCH (08:59)
[2020-06-06] MEDS: VANCOMYCIN 750MG + NS 250 ML IV SCH ×4 (09:04→21:00)
[2020-06-06] MEDS ORDERED: PROPOFOL 1000 MG/100 ML IV PRN (16:15)
[2020-06-06] MEDS: FENTANYL 2500MCG+NS 250ML 250 ML IV SCH (16:17)
[2020-06-06] MEDS: CISATRACURIUM BESYLATE 100 MG in 0.9%NACL 100ML 100 ML IV SCH ×2 (16:18→22:26)
[2020-06-06] MEDS: PROPOFOL 1000 MG/100 ML 100 ML IV PRN (16:24)
[2020-06-06] MEDS: INSULIN GLARGINE 100 UNITS/ML 10 ML VIAL SQ SCH (21:00)
[2020-06-06] MEDS: MIDAZOLAM 100MG-0.9% NS 100ML 100 ML IV SCH (22:23)
[2020-06-07] VITALS (31 sets, daily range): BP systolic 98–141; BP diastolic 55–76
[2020-06-07] MEDS: MEROPENEM 500 MG VIAL IVP SCH ×3 (00:28→17:27)
[2020-06-07] MEDS: PROPOFOL 1000 MG/100 ML 100 ML IV PRN ×2 (01:22→08:39)
[2020-06-07] MEDS: CISATRACURIUM BESYLATE 100 MG in 0.9%NACL 100ML 100 ML IV SCH ×2 (03:11→20:32)
[2020-06-07 04:41] LABS: BASOPHILS % (AUTO) 0.1 % (0.0-5.0); HEMATOCRIT 35.4 % (36-48); LYMPHOCYTES % (AUTO) 3.5 % (21.0-51.0); MEAN CORPUSCULAR HEMOGLOBIN 29.4 pg (27.0-33.0); MEAN CORPUSCULAR HGB CONC 31.6 g/dL (32.0-36.0); MEAN CORPUSCULAR VOLUME 92.9 fL (79-99); MONOCYTES % (AUTO) 4.8 % (3.0-13.0); NEUTROPHILS % (AUTO) 89.8 % (40.0-77.0); PLATELET COUNT (AUTO) 281 K/uL (130-400); RED BLOOD CELL COUNT(AUTO) 3.81 MIL/uL (4.00-5.50); RED CELL DISTRIBUTION WIDTH 12.7 % (11.0-15.5); WHITE BLOOD COUNT (AUTO) 17.5 K/uL (4.8-10.8)
[2020-06-07 04:57] LABS: ALBUMIN 1.8 g/dL (3.5-5.0); BILIRUBIN,DIRECT 0.1 mg/dL (0.0-0.3); BILIRUBIN,TOTAL 0.4 mg/dL (0.2-1.0); CREATININE 0.9 mg/dL (0.5-1.5); MAGNESIUM 2.2 mg/dL (1.80-2.40); PHOSPHORUS 4.5 mg/dL (2.5-4.9); POTASSIUM 3.9 mmol/L (3.5-5.1); TOTAL PROTEIN, SERUM 5.3 g/dL (6.0-8.3)
[2020-06-07] MEDS: INSULIN HUMULIN R 100 UNIT/ML 3ML SQ SCH ×4 (06:47→21:00)
[2020-06-07] MEDS: Vitamin B Complex/Vit C/Folic Acid PO SCH (08:09)
[2020-06-07] MEDS: DEXAMETHASONE SOD PHOSPHATE 4 MG/ML 1ML VIAL IVP SCH ×2 (08:09→20:23)
[2020-06-07] MEDS: DOCUSATE NA 100MG/10ML UDCUP PO SCH ×2 (08:09→20:23)
[2020-06-07] MEDS: ASPIRIN 325MG EC TAB PO SCH (08:10)
[2020-06-07] MEDS: ASCORBIC ACID 500 MG TAB PO SCH (08:10)
[2020-06-07] MEDS: FUROSEMIDE 20MG VIAL IV SCH ×2 (08:10→20:23)
[2020-06-07] MEDS: ZINC SULFATE 220 CAPSULE PO SCH (08:10)
[2020-06-07] MEDS: ENOXAPARIN SODIUM 80 MG/0.8 ML SQ SCH ×2 (08:11→20:23)
[2020-06-07] MEDS: VANCOMYCIN 750MG + NS 250 ML IV SCH ×4 (08:12→20:35)
[2020-06-07] MEDS: THIAMINE HCL 100 MG/ML 2ML VIAL IVP SCH (09:34)
[2020-06-07] MEDS ORDERED: FENTANYL CITRATE PF 0.05 MG/ML 2,500 MCG in 0.9%NACL 100ML 250 ML IVPB SCH (17:30)
[2020-06-07] MEDS: INSULIN GLARGINE 100 UNITS/ML 10 ML VIAL SQ SCH (20:30)
[2020-06-08] VITALS (33 sets, daily range): BP systolic 112–157; BP diastolic 59–86
[2020-06-08] MEDS: ALBUTEROL INHALER 90MCG/INH IH SCH
[2020-06-08] MEDS: MEROPENEM 500 MG VIAL IVP SCH ×3 (00:14→17:13)
[2020-06-08] MEDS: MIDAZOLAM 100MG-0.9% NS 100ML 100 ML IV SCH ×2 (00:16→23:47)
[2020-06-08] MEDS: CISATRACURIUM BESYLATE 100 MG in 0.9%NACL 100ML 100 ML IV SCH ×2 (01:48→19:24)
[2020-06-08 03:35] LABS: ABG BASE EXCESS 7.3 mmol/L (-2.0-3.0); ABG HCO3 32.3 mmol/L (21.0-28.0); ABG OXYGEN SATURATION 91.6 % (95.0-99.0); ABG PCO2 47 mmHg (32-45)
[2020-06-08] MEDS: PROPOFOL 1000 MG/100 ML 100 ML IV PRN (05:00)
[2020-06-08 05:08] LABS: BASOPHILS % (AUTO) 0.1 % (0.0-5.0); HEMATOCRIT 29.9 % (36-48); LYMPHOCYTES % (AUTO) 3.5 % (21.0-51.0); MEAN CORPUSCULAR HEMOGLOBIN 29.6 pg (27.0-33.0); MEAN CORPUSCULAR HGB CONC 32.1 g/dL (32.0-36.0); MEAN CORPUSCULAR VOLUME 92.3 fL (79-99); MONOCYTES % (AUTO) 4.4 % (3.0-13.0); NEUTROPHILS % (AUTO) 89.6 % (40.0-77.0); PLATELET COUNT (AUTO) 254 K/uL (130-400); RED BLOOD CELL COUNT(AUTO) 3.24 MIL/uL (4.00-5.50); RED CELL DISTRIBUTION WIDTH 12.8 % (11.0-15.5)
[2020-06-08 05:22] LABS: CREATININE 0.9 mg/dL (0.5-1.5); MAGNESIUM 2.3 mg/dL (1.80-2.40); PHOSPHORUS 3.9 mg/dL (2.5-4.9)
[2020-06-08] MEDS: INSULIN HUMULIN R 100 UNIT/ML 3ML SQ SCH ×4 (07:17→20:45)
[2020-06-08] MEDS: ENOXAPARIN SODIUM 80 MG/0.8 ML SQ SCH ×2 (09:29→20:29)
[2020-06-08] MEDS: DEXAMETHASONE SOD PHOSPHATE 4 MG/ML 1ML VIAL IVP SCH (09:30)
[2020-06-08] MEDS: FUROSEMIDE 20MG VIAL IV SCH ×2 (09:30→20:38)
[2020-06-08] MEDS: DOCUSATE NA 100MG/10ML UDCUP PO SCH ×2 (09:30→20:46)
[2020-06-08] MEDS: THIAMINE HCL 100 MG/ML 2ML VIAL IVP SCH (09:30)
[2020-06-08] MEDS: ZINC SULFATE 220 CAPSULE PO SCH (09:31)
[2020-06-08] MEDS: ASPIRIN 325MG EC TAB PO SCH (09:31)
[2020-06-08] MEDS: ASCORBIC ACID 500 MG TAB PO SCH (09:31)
[2020-06-08] MEDS: Vitamin B Complex/Vit C/Folic Acid PO SCH (09:31)
[2020-06-08] MEDS: VANCOMYCIN 750MG + NS 250 ML IV SCH ×4 (09:33→20:30)
[2020-06-08] MEDS: SOLU-MEDROL 40MG VIAL IVP SCH (17:13)
[2020-06-08] MEDS: INSULIN GLARGINE 100 UNITS/ML 10 ML VIAL SQ SCH (21:09)
[2020-06-09] VITALS (29 sets, daily range): BP systolic 115–180; BP diastolic 62–85
[2020-06-09] MEDS: MEROPENEM 500 MG VIAL IVP SCH ×3 (00:39→16:29)
[2020-06-09] MEDS: SOLU-MEDROL 40MG VIAL IVP SCH ×3 (00:39→16:29)
[2020-06-09] MEDS: PROPOFOL 1000 MG/100 ML 100 ML IV PRN (01:52)
[2020-06-09] MEDS: CISATRACURIUM BESYLATE 100 MG in 0.9%NACL 100ML 100 ML IV SCH (01:52)
[2020-06-09 04:20] LABS: ABG HCO3 32.5 mmol/L (21.0-28.0); ABG OXYGEN SATURATION 99.4 % (95.0-99.0); ABG PCO2 40 mmHg (32-45)
[2020-06-09 04:28] LABS: BASOPHILS % (AUTO) 0.2 % (0.0-5.0); EOSINOPHILS % (AUTO) 0.6 % (0.0-8.0); HEMATOCRIT 25.9 % (36-48); LYMPHOCYTES % (AUTO) 3.4 % (21.0-51.0); MEAN CORPUSCULAR HEMOGLOBIN 30.2 pg (27.0-33.0); MEAN CORPUSCULAR HGB CONC 32.4 g/dL (32.0-36.0); MEAN CORPUSCULAR VOLUME 93.2 fL (79-99); MONOCYTES % (AUTO) 4.2 % (3.0-13.0); NEUTROPHILS % (AUTO) 87.9 % (40.0-77.0); NUCLEATED RED BLOOD CELLS 0.1 % (0.0-0.19); PLATELET COUNT (AUTO) 255 K/uL (130-400); RED BLOOD CELL COUNT(AUTO) 2.78 MIL/uL (4.00-5.50); WHITE BLOOD COUNT (AUTO) 25.6 K/uL (4.8-10.8)
[2020-06-09 04:50] LABS: ALBUMIN 1.9 g/dL (3.5-5.0); BILIRUBIN,DIRECT 0.1 mg/dL (0.0-0.3); BILIRUBIN,TOTAL 0.4 mg/dL (0.2-1.0); CREATININE 0.8 mg/dL (0.5-1.5); MAGNESIUM 2.4 mg/dL (1.80-2.40); PHOSPHORUS 3.2 mg/dL (2.5-4.9); POTASSIUM 4.3 mmol/L (3.5-5.1); TOTAL PROTEIN, SERUM 5.1 g/dL (6.0-8.3)
[2020-06-09] MEDS: INSULIN HUMULIN R 100 UNIT/ML 3ML SQ SCH ×4 (06:46→21:00)
[2020-06-09] MEDS: THIAMINE HCL 100 MG/ML 2ML VIAL IVP SCH (09:49)
[2020-06-09] MEDS: DOCUSATE NA 100MG/10ML UDCUP PO SCH ×2 (09:50→21:13)
[2020-06-09] MEDS: ASCORBIC ACID 500 MG TAB PO SCH (09:50)
[2020-06-09] MEDS: FUROSEMIDE 20MG VIAL IV SCH ×2 (09:50→21:13)
[2020-06-09] MEDS: Vitamin B Complex/Vit C/Folic Acid PO SCH (09:51)
[2020-06-09] MEDS: ASPIRIN 325MG EC TAB PO SCH (09:51)
[2020-06-09] MEDS: ZINC SULFATE 220 CAPSULE PO SCH (09:51)
[2020-06-09] MEDS: ENOXAPARIN SODIUM 80 MG/0.8 ML SQ SCH (09:51)
[2020-06-09] MEDS: VANCOMYCIN 750MG + NS 250 ML IV SCH ×4 (09:52→21:15)
[2020-06-09] MEDS ORDERED: ENOXAPARIN SODIUM 40 MG/0.4 ML SYRINGE SQ SCH (21:00)
[2020-06-09] MEDS: INSULIN GLARGINE 100 UNITS/ML 10 ML VIAL SQ SCH (21:15)
[2020-06-10] VITALS (33 sets, daily range): BP systolic 104–158; BP diastolic 55–77
[2020-06-10] MEDS: MEROPENEM 500 MG VIAL IVP SCH ×3 (00:07→17:16)
[2020-06-10] MEDS: SOLU-MEDROL 40MG VIAL IVP SCH ×3 (00:07→17:18)
[2020-06-10] MEDS: PROPOFOL 1000 MG/100 ML 100 ML IV PRN ×4 (00:31→23:47)
[2020-06-10 04:34] LABS: HEMATOCRIT 24.9 % (36-48); MEAN CORPUSCULAR HEMOGLOBIN 31.3 pg (27.0-33.0); MEAN CORPUSCULAR HGB CONC 32.5 g/dL (32.0-36.0); MEAN CORPUSCULAR VOLUME 96.1 fL (79-99); NUCLEATED RED BLOOD CELLS 0.6 % (0.0-0.19); PLATELET COUNT (AUTO) 294 K/uL (130-400); RED BLOOD CELL COUNT(AUTO) 2.59 MIL/uL (4.00-5.50); RED CELL DISTRIBUTION WIDTH 13.4 % (11.0-15.5)
[2020-06-10 04:41] LABS: WHITE BLOOD COUNT (AUTO) 35.1 K/uL (4.8-10.8)
[2020-06-10 04:42] LABS: BILIRUBIN,TOTAL 0.6 mg/dL (0.2-1.0); CREATININE 0.9 mg/dL (0.5-1.5); MAGNESIUM 2.5 mg/dL (1.80-2.40); PHOSPHORUS 4.2 mg/dL (2.5-4.9); POTASSIUM 4.4 mmol/L (3.5-5.1); TOTAL PROTEIN, SERUM 5.2 g/dL (6.0-8.3)
[2020-06-10 04:46] LABS: ABG BASE EXCESS 8.7 mmol/L (-2.0-3.0); ABG HCO3 33.4 mmol/L (21.0-28.0); ABG PCO2 45 mmHg (32-45)
[2020-06-10 05:04] LABS: BAND NEUTROPHILS % (MANUAL) 2 % (0-2); LYMPHOCYTES % (MANUAL) 5 % (22-44); MAN.DIFF COMMENT-IMPRESSION MANUAL DIFFERENTIAL; MONOCYTES % (MANUAL) 3 % (2-9); PLATELET MORPHOLOGY COMMENT ADEQUATE; SEGMENTED NEUTROPHILS % 90 % (40-70)
[2020-06-10] MEDS: MIDAZOLAM 100MG-0.9% NS 100ML 100 ML IV SCH (06:25)
[2020-06-10] MEDS: INSULIN HUMULIN R 100 UNIT/ML 3ML SQ SCH ×4 (06:31→21:31)
[2020-06-10] MEDS: FUROSEMIDE 20MG VIAL IV SCH ×2 (09:16→21:29)
[2020-06-10] MEDS: THIAMINE HCL 100 MG/ML 2ML VIAL IVP SCH (09:16)
[2020-06-10] MEDS: ZINC SULFATE 220 CAPSULE PO SCH (09:16)
[2020-06-10] MEDS: ASCORBIC ACID 500 MG TAB PO SCH (09:17)
[2020-06-10] MEDS: DOCUSATE NA 100MG/10ML UDCUP PO SCH ×2 (09:17→21:28)
[2020-06-10] MEDS: ASPIRIN 325MG EC TAB PO SCH (09:17)
[2020-06-10] MEDS: Vitamin B Complex/Vit C/Folic Acid PO SCH (09:17)
[2020-06-10] MEDS: VANCOMYCIN 750MG + NS 250 ML IV SCH ×4 (09:19→21:33)
[2020-06-10] MEDS: ENOXAPARIN SODIUM 80 MG/0.8 ML SQ SCH ×2 (10:53→21:29)
[2020-06-10 16:39] LABS: ABG BASE EXCESS 8.8 mmol/L (-2.0-3.0); ABG HCO3 33.7 mmol/L (21.0-28.0); ABG OXYGEN SATURATION 98.2 % (95.0-99.0); ABG PCO2 47 mmHg (32-45)
[2020-06-10] MEDS: LACTULOSE 20 GM/30 ML UDCUP PO PRN (21:28)
[2020-06-10] MEDS: INSULIN GLARGINE 100 UNITS/ML 10 ML VIAL SQ SCH (21:32)
[2020-06-10] MEDS: FENTANYL 2500MCG+NS 250ML 250 ML IV SCH (23:45)
[2020-06-11] VITALS (44 sets, daily range): BP systolic 108–171; BP diastolic 47–76
[2020-06-11] MEDS: SOLU-MEDROL 40MG VIAL IVP SCH ×3 (00:20→17:59)
[2020-06-11] MEDS: MEROPENEM 500 MG VIAL IVP SCH ×3 (00:21→17:59)
[2020-06-11] MEDS: PROPOFOL 1000 MG/100 ML 100 ML IV PRN ×3 (02:54→21:30)
[2020-06-11 03:32] LABS: ABG BASE EXCESS 14.5 mmol/L (-2.0-3.0); ABG HCO3 38.6 mmol/L (21.0-28.0); ABG OXYGEN SATURATION 95.1 % (95.0-99.0); ABG PCO2 45 mmHg (32-45)
[2020-06-11 04:24] LABS: BASOPHILS % (AUTO) 0.1 % (0.0-5.0); EOSINOPHILS % (AUTO) 0.1 % (0.0-8.0); LYMPHOCYTES % (AUTO) 6.6 % (21.0-51.0); MEAN CORPUSCULAR HEMOGLOBIN 37.4 pg (27.0-33.0); MEAN CORPUSCULAR HGB CONC 37.8 g/dL (32.0-36.0); MEAN CORPUSCULAR VOLUME 98.9 fL (79-99); MONOCYTES % (AUTO) 2.6 % (3.0-13.0); PLATELET COUNT (AUTO) 250 K/uL (130-400); RED BLOOD CELL COUNT(AUTO) 1.82 MIL/uL (4.00-5.50); RED CELL DISTRIBUTION WIDTH 14.6 % (11.0-15.5); WHITE BLOOD COUNT (AUTO) 28.1 K/uL (4.8-10.8)
[2020-06-11 04:46] LABS: ALBUMIN 1.7 g/dL (3.5-5.0); BILIRUBIN,TOTAL 1.1 mg/dL (0.2-1.0); CREATININE 0.8 mg/dL (0.5-1.5); MAGNESIUM 2.3 mg/dL (1.80-2.40); PHOSPHORUS 2.4 mg/dL (2.5-4.9); POTASSIUM 3.6 mmol/L (3.5-5.1)
[2020-06-11 05:42] LABS: BILIRUBIN,DIRECT 0.1 mg/dL (0.0-0.3); TOTAL PROTEIN, SERUM 4.1 g/dL (6.0-8.3)
[2020-06-11] MEDS: MIDAZOLAM 100MG-0.9% NS 100ML 100 ML IV SCH (07:06)
[2020-06-11] MEDS: INSULIN HUMULIN R 100 UNIT/ML 3ML SQ SCH ×4 (07:13→21:13)
[2020-06-11] MEDS ORDERED: PANTOPRAZOLE 40MG INJ 80 MG in 0.9%NACL 100ML 100 ML IVP SCH (09:00)
[2020-06-11] MEDS ORDERED: PANTOPRAZOLE 40 MG/VIAL IVP SCH (09:00)
[2020-06-11] MEDS: ASCORBIC ACID 500 MG TAB PO SCH (09:00)
[2020-06-11 09:23] LABS: INR 0.92 (0.85-1.15); PARTIAL THROMBOPLASTIN TIME 23.6 SEC (26.3-35.5)
[2020-06-11] MEDS: THIAMINE HCL 100 MG/ML 2ML VIAL IVP SCH (10:34)
[2020-06-11] MEDS: Vitamin B Complex/Vit C/Folic Acid PO SCH (10:34)
[2020-06-11] MEDS: ZINC SULFATE 220 CAPSULE PO SCH (10:34)
[2020-06-11] MEDS: ASPIRIN 325MG EC TAB PO SCH (10:34)
[2020-06-11] MEDS: DOCUSATE NA 100MG/10ML UDCUP PO SCH ×2 (10:34→21:11)
[2020-06-11] MEDS: FUROSEMIDE 20MG VIAL IV SCH ×2 (10:35→21:11)
[2020-06-11] MEDS: VANCOMYCIN 750MG + NS 250 ML IV SCH ×4 (10:37→21:11)
[2020-06-11 19:55] LABS: BASOPHILS % (AUTO) 0.2 % (0.0-5.0); EOSINOPHILS % (AUTO) 0.1 % (0.0-8.0); HEMATOCRIT 24.9 % (36-48); LYMPHOCYTES % (AUTO) 6.2 % (21.0-51.0); MEAN CORPUSCULAR HEMOGLOBIN 32.9 pg (27.0-33.0); MEAN CORPUSCULAR HGB CONC 34.1 g/dL (32.0-36.0); MEAN CORPUSCULAR VOLUME 96.5 fL (79-99); MONOCYTES % (AUTO) 2.5 % (3.0-13.0); NEUTROPHILS % (AUTO) 84.2 % (40.0-77.0); NUCLEATED RED BLOOD CELLS 1.4 % (0.0-0.19); PLATELET COUNT (AUTO) 209 K/uL (130-400); RED BLOOD CELL COUNT(AUTO) 2.58 MIL/uL (4.00-5.50); RED CELL DISTRIBUTION WIDTH 14.6 % (11.0-15.5); WHITE BLOOD COUNT (AUTO) 28.9 K/uL (4.8-10.8)
[2020-06-11] MEDS: INSULIN GLARGINE 100 UNITS/ML 10 ML VIAL SQ SCH (21:13)
[2020-06-12] VITALS (28 sets, daily range): BP systolic 112–148; BP diastolic 59–73
[2020-06-12] MEDS: PROPOFOL 1000 MG/100 ML 100 ML IV PRN ×4 (00:28→21:10)
[2020-06-12] MEDS: MEROPENEM 500 MG VIAL IVP SCH ×4 (00:28→23:53)
[2020-06-12] MEDS: SOLU-MEDROL 40MG VIAL IVP SCH ×4 (00:28→23:53)
[2020-06-12 03:58] LABS: ABG BASE EXCESS 13.5 mmol/L (-2.0-3.0); ABG HCO3 36.1 mmol/L (21.0-28.0); ABG OXYGEN SATURATION 96.7 % (95.0-99.0); ABG PCO2 38 mmHg (32-45)
[2020-06-12 04:05] LABS: BASOPHILS % (AUTO) 0.2 % (0.0-5.0); EOSINOPHILS % (AUTO) 0.2 % (0.0-8.0); HEMATOCRIT 24.5 % (36-48); LYMPHOCYTES % (AUTO) 4.9 % (21.0-51.0); MEAN CORPUSCULAR HEMOGLOBIN 31.9 pg (27.0-33.0); MEAN CORPUSCULAR HGB CONC 33.5 g/dL (32.0-36.0); MEAN CORPUSCULAR VOLUME 95.3 fL (79-99); MONOCYTES % (AUTO) 2.6 % (3.0-13.0); NEUTROPHILS % (AUTO) 85.3 % (40.0-77.0); NUCLEATED RED BLOOD CELLS 1.6 % (0.0-0.19); PLATELET COUNT (AUTO) 168 K/uL (130-400); RED BLOOD CELL COUNT(AUTO) 2.57 MIL/uL (4.00-5.50); RED CELL DISTRIBUTION WIDTH 15.2 % (11.0-15.5); WHITE BLOOD COUNT (AUTO) 28.5 K/uL (4.8-10.8)
[2020-06-12 04:15] LABS: ALBUMIN 1.7 g/dL (3.5-5.0); BILIRUBIN,DIRECT 0.1 mg/dL (0.0-0.3); BILIRUBIN,TOTAL 0.9 mg/dL (0.2-1.0); CREATININE 0.8 mg/dL (0.5-1.5); MAGNESIUM 2.6 mg/dL (1.80-2.40); PHOSPHORUS 3.3 mg/dL (2.5-4.9); POTASSIUM 3.9 mmol/L (3.5-5.1); TOTAL PROTEIN, SERUM 4.9 g/dL (6.0-8.3)
[2020-06-12] MEDS: MIDAZOLAM 100MG-0.9% NS 100ML 100 ML IV SCH (04:26)
[2020-06-12] MEDS: INSULIN HUMULIN R 100 UNIT/ML 3ML SQ SCH ×3 (06:53→21:30)
[2020-06-12] MEDS: FENTANYL 2500MCG+NS 250ML 250 ML IV SCH (07:01)
[2020-06-12] MEDS: ZINC SULFATE 220 CAPSULE PO SCH (08:51)
[2020-06-12] MEDS: DOCUSATE NA 100MG/10ML UDCUP PO SCH ×2 (08:51→21:08)
[2020-06-12] MEDS: ASCORBIC ACID 500 MG TAB PO SCH (08:51)
[2020-06-12] MEDS: Vitamin B Complex/Vit C/Folic Acid PO SCH (08:51)
[2020-06-12] MEDS: ASPIRIN 325MG EC TAB PO SCH (08:51)
[2020-06-12] MEDS: VANCOMYCIN 750MG + NS 250 ML IV SCH ×4 (08:52→21:08)
[2020-06-12] MEDS: FUROSEMIDE 20MG VIAL IV SCH (08:52)
[2020-06-12] MEDS: THIAMINE HCL 100 MG/ML 2ML VIAL IVP SCH (09:11)
[2020-06-12] MEDS ORDERED: DIAZEPAM 5 MG/ML 2 ML SYG IVP SCH (17:15)
[2020-06-12] MEDS ORDERED: FENTANYL 2500MCG+NS 250ML 250 ML IV ONE (20:56)
[2020-06-12] MEDS: PHARMACY COMMUNICATION MISC SCH (21:00)
[2020-06-12] MEDS ORDERED: DIAZEPAM 5 MG TABLET GT SCH (21:00)
[2020-06-12] MEDS: INSULIN GLARGINE 100 UNITS/ML 10 ML VIAL SQ SCH (21:29)
[2020-06-12] MEDS: DIAZEPAM 5 MG TABLET GT SCH (22:11)
[2020-06-13] VITALS (45 sets, daily range): BP systolic 99–188; BP diastolic 57–85
[2020-06-13] MEDS: MIDAZOLAM 100MG-0.9% NS 100ML 100 ML IV SCH (01:02)
[2020-06-13] MEDS: PROPOFOL 1000 MG/100 ML 100 ML IV PRN ×5 (01:09→22:22)
[2020-06-13 03:44] LABS: ABG BASE EXCESS 9.8 mmol/L (-2.0-3.0); ABG HCO3 33.8 mmol/L (21.0-28.0); ABG OXYGEN SATURATION 95.4 % (95.0-99.0); ABG PCO2 43 mmHg (32-45)
[2020-06-13 03:55] LABS: BASOPHILS % (AUTO) 0.2 % (0.0-5.0); EOSINOPHILS % (AUTO) 0.3 % (0.0-8.0); HEMATOCRIT 23.6 % (36-48); MEAN CORPUSCULAR HEMOGLOBIN 31.1 pg (27.0-33.0); MEAN CORPUSCULAR HGB CONC 30.9 g/dL (32.0-36.0); MEAN CORPUSCULAR VOLUME 100.4 fL (79-99); MONOCYTES % (AUTO) 4.2 % (3.0-13.0); NEUTROPHILS % (AUTO) 83.2 % (40.0-77.0); NUCLEATED RED BLOOD CELLS 1.3 % (0.0-0.19); PLATELET COUNT (AUTO) 167 K/uL (130-400); RED BLOOD CELL COUNT(AUTO) 2.35 MIL/uL (4.00-5.50); RED CELL DISTRIBUTION WIDTH 17.7 % (11.0-15.5); WHITE BLOOD COUNT (AUTO) 22.6 K/uL (4.8-10.8)
[2020-06-13 04:15] LABS: ALBUMIN 1.5 g/dL (3.5-5.0); BILIRUBIN,DIRECT 0.1 mg/dL (0.0-0.3); BILIRUBIN,TOTAL 0.7 mg/dL (0.2-1.0); MAGNESIUM 2.6 mg/dL (1.80-2.40); PHOSPHORUS 3.7 mg/dL (2.5-4.9); TOTAL PROTEIN, SERUM 4.9 g/dL (6.0-8.3)
[2020-06-13 04:23] LABS: CREATININE 0.7 mg/dL (0.5-1.5)
[2020-06-13] MEDS: DIAZEPAM 5 MG TABLET GT SCH ×3 (06:00→21:37)
[2020-06-13] MEDS: INSULIN HUMULIN R 100 UNIT/ML 3ML SQ SCH ×4 (06:51→21:00)
[2020-06-13] MEDS: PHARMACY COMMUNICATION MISC SCH (09:00)
[2020-06-13] MEDS ORDERED: ASPIRIN 325MG EC TAB PO SCH (10:11)
[2020-06-13] MEDS: MEROPENEM 500 MG VIAL IVP SCH ×2 (10:42→19:55)
[2020-06-13] MEDS: FUROSEMIDE 20MG VIAL IV SCH (10:43)
[2020-06-13] MEDS ORDERED: VANCOMYCIN 1G 1.25 GM in 0.9% NACL 250ML 250 ML IV SCH (10:45)
[2020-06-13] MEDS: THIAMINE HCL 100 MG/ML 2ML VIAL IVP SCH (10:46)
[2020-06-13] MEDS: Vitamin B Complex/Vit C/Folic Acid PO SCH (10:49)
[2020-06-13] MEDS: DOCUSATE NA 100MG/10ML UDCUP PO SCH ×2 (10:50→21:00)
[2020-06-13] MEDS: ALBUTEROL INHALER 90MCG/INH IH SCH ×2 (10:52→15:05)
[2020-06-13] MEDS: SOLU-MEDROL 40MG VIAL IVP SCH (19:55)
[2020-06-13] MEDS ORDERED: ENOXAPARIN SODIUM 40 MG/0.4 ML SYRINGE SQ SCH (21:00)
[2020-06-13] MEDS: FAMOTIDINE 20MG VIAL IV SCH (21:25)
[2020-06-13] MEDS: VANCOMYCIN 750MG + NS 250 ML IV SCH ×2 (21:26)
[2020-06-13] MEDS: INSULIN GLARGINE 100 UNITS/ML 10 ML VIAL SQ SCH (21:34)
[2020-06-13] MEDS: FENTANYL 2500MCG+NS 250ML 250 ML IV SCH (21:36)
[2020-06-14] VITALS (33 sets, daily range): BP systolic 120–181; BP diastolic 60–91
[2020-06-14] MEDS: MIDAZOLAM 100MG-0.9% NS 100ML 100 ML IV SCH ×2 (00:43→10:27)
[2020-06-14] MEDS: PROPOFOL 1000 MG/100 ML 100 ML IV PRN ×5 (03:20→22:47)
[2020-06-14] MEDS: MEROPENEM 500 MG VIAL IVP SCH ×3 (03:31→21:15)
[2020-06-14] MEDS: SOLU-MEDROL 40MG VIAL IVP SCH ×3 (03:32→21:15)
[2020-06-14 04:56] LABS: HEMATOCRIT 26.8 % (36-48); MEAN CORPUSCULAR HEMOGLOBIN 32.2 pg (27.0-33.0); MEAN CORPUSCULAR VOLUME 103.9 fL (79-99); NUCLEATED RED BLOOD CELLS 0.7 % (0.0-0.19); RED BLOOD CELL COUNT(AUTO) 2.58 MIL/uL (4.00-5.50); RED CELL DISTRIBUTION WIDTH 18.7 % (11.0-15.5)
[2020-06-14 05:11] LABS: CREATININE 0.6 mg/dL (0.5-1.5); CRP QUANTITATIVE 87.6 mg/L (0.00-9.0); POTASSIUM 3.9 mmol/L (3.5-5.1)
[2020-06-14] MEDS: DIAZEPAM 5 MG TABLET GT SCH ×3 (06:00→21:16)
[2020-06-14 06:38] LABS: ABG BASE EXCESS 9.2 mmol/L (-2.0-3.0); ABG HCO3 32.9 mmol/L (21.0-28.0); ABG OXYGEN SATURATION 97.3 % (95.0-99.0); ABG PCO2 41 mmHg (32-45)
[2020-06-14] MEDS: ALBUTEROL INHALER 90MCG/INH IH SCH ×2 (07:47→10:14)
[2020-06-14] MEDS: INSULIN HUMULIN R 100 UNIT/ML 3ML SQ SCH ×4 (07:53→21:00)
[2020-06-14] MEDS: DOCUSATE NA 100MG/10ML UDCUP PO SCH ×2 (09:00→21:00)
[2020-06-14] MEDS: VANCOMYCIN 750MG + NS 250 ML IV SCH ×4 (10:37→21:24)
[2020-06-14] MEDS: THIAMINE HCL 100 MG/ML 2ML VIAL IVP SCH (10:38)
[2020-06-14] MEDS: Vitamin B Complex/Vit C/Folic Acid PO SCH (10:38)
[2020-06-14] MEDS: FAMOTIDINE 20MG VIAL IV SCH ×2 (11:05→21:15)
[2020-06-14] MEDS: FUROSEMIDE 20MG VIAL IV SCH ×2 (11:06→21:16)
[2020-06-14] MEDS: FENTANYL 2500MCG+NS 250ML 250 ML IV SCH (12:20)
[2020-06-14] MEDS: ENOXAPARIN SODIUM 40 MG/0.4 ML SYRINGE SQ SCH ×2 (15:25→22:45)
[2020-06-14] MEDS: INSULIN GLARGINE 100 UNITS/ML 10 ML VIAL SQ SCH (21:35)
[2020-06-15] VITALS (33 sets, daily range): BP systolic 96–198; BP diastolic 50–102
[2020-06-15] MEDS: PROPOFOL 1000 MG/100 ML 100 ML IV PRN ×5 (01:44→22:44)
[2020-06-15] MEDS: MIDAZOLAM 100MG-0.9% NS 100ML 100 ML IV SCH (01:45)
[2020-06-15] MEDS: FENTANYL 2500MCG+NS 250ML 250 ML IV SCH ×3 (03:29→20:36)
[2020-06-15 04:13] LABS: HEMATOCRIT 24.3 % (36-48); MEAN CORPUSCULAR HEMOGLOBIN 31.6 pg (27.0-33.0); MEAN CORPUSCULAR HGB CONC 30.9 g/dL (32.0-36.0); MEAN CORPUSCULAR VOLUME 102.5 fL (79-99); NUCLEATED RED BLOOD CELLS 0.7 % (0.0-0.19); RED BLOOD CELL COUNT(AUTO) 2.37 MIL/uL (4.00-5.50); RED CELL DISTRIBUTION WIDTH 18.2 % (11.0-15.5); WHITE BLOOD COUNT (AUTO) 14.1 K/uL (4.8-10.8)
[2020-06-15 04:29] LABS: CREATININE 0.5 mg/dL (0.5-1.5); POTASSIUM 3.7 mmol/L (3.5-5.1)
[2020-06-15] MEDS: MEROPENEM 500 MG VIAL IVP SCH ×2 (04:31→13:27)
[2020-06-15] MEDS: SOLU-MEDROL 40MG VIAL IVP SCH ×3 (04:31→20:49)
[2020-06-15] MEDS: INSULIN HUMULIN R 100 UNIT/ML 3ML SQ SCH ×4 (06:34→20:50)
[2020-06-15] MEDS: DIAZEPAM 5 MG TABLET GT SCH ×3 (06:34→21:17)
[2020-06-15 07:23] LABS: ABG BASE EXCESS 7.4 mmol/L (-2.0-3.0); ABG HCO3 32.1 mmol/L (21.0-28.0); ABG OXYGEN SATURATION 91.3 % (95.0-99.0); ABG PCO2 45 mmHg (32-45)
[2020-06-15] MEDS: DOCUSATE NA 100MG/10ML UDCUP PO SCH ×2 (09:00→21:00)
[2020-06-15] MEDS: ALBUTEROL INHALER 90MCG/INH IH SCH (10:42)
[2020-06-15] MEDS: FUROSEMIDE 20MG VIAL IV SCH ×2 (11:05→20:32)
[2020-06-15] MEDS: VANCOMYCIN 750MG + NS 250 ML IV SCH ×4 (11:05→22:23)
[2020-06-15] MEDS: Vitamin B Complex/Vit C/Folic Acid PO SCH ×2 (11:05→11:10)
[2020-06-15] MEDS: PANTOPRAZOLE 40 MG/VIAL IVP SCH ×2 (11:08→20:32)
[2020-06-15] MEDS: ASPIRIN 81MG CHEW TAB PO SCH (11:10)
[2020-06-15] MEDS: THIAMINE HCL 100 MG/ML 2ML VIAL IVP SCH (11:11)
[2020-06-15] MEDS ORDERED: VECURONIUM 10MG/10ML IV ONE (13:57)
[2020-06-15] MEDS ORDERED: ROCURONIUM BROMIDE 100 MG in 0.9%NACL 100ML 100 ML IV SCH (14:45)
[2020-06-15] MEDS ORDERED: PHARMACY COMMUNICATION MISC SCH ×2 (15:15→17:15)
[2020-06-15] MEDS ORDERED: ROCURONIUM BROMIDE 10MG/1ML 5ML VL IV SCH ×2 (15:30→17:30)
[2020-06-15 15:32] LABS: ABG OXYGEN SATURATION 97.3 % (95.0-99.0); ABG PCO2 47 mmHg (32-45)
[2020-06-15] MEDS: ENOXAPARIN SODIUM 40 MG/0.4 ML SYRINGE SQ SCH (20:51)
[2020-06-15] MEDS: INSULIN GLARGINE 100 UNITS/ML 10 ML VIAL SQ SCH (22:31)
[2020-06-15] MEDS ORDERED: HYDRALAZINE 20MG/ML VIAL IV PRN (23:30)
[2020-06-15] MEDS ORDERED: HYDRALAZINE 20MG/ML VIAL ONE (23:41)
[2020-06-16] VITALS (59 sets, daily range): BP systolic 126–221; BP diastolic 59–104
[2020-06-16] MEDS: PROPOFOL 1000 MG/100 ML 100 ML IV PRN ×4 (03:10→21:23)
[2020-06-16] MEDS: SOLU-MEDROL 40MG VIAL IVP SCH ×3 (04:22→20:52)
[2020-06-16 05:55] LABS: CREATININE 0.5 mg/dL (0.5-1.5); CRP QUANTITATIVE 50.3 mg/L (0.00-9.0); POTASSIUM 3.5 mmol/L (3.5-5.1)
[2020-06-16 05:56] LABS: HEMATOCRIT 27.2 % (36-48); MEAN CORPUSCULAR HEMOGLOBIN 31.1 pg (27.0-33.0); MEAN CORPUSCULAR HGB CONC 30.1 g/dL (32.0-36.0); NUCLEATED RED BLOOD CELLS 0.6 % (0.0-0.19); RED BLOOD CELL COUNT(AUTO) 2.64 MIL/uL (4.00-5.50); RED CELL DISTRIBUTION WIDTH 19.1 % (11.0-15.5); WHITE BLOOD COUNT (AUTO) 13.3 K/uL (4.8-10.8)
[2020-06-16] MEDS: INSULIN HUMULIN R 100 UNIT/ML 3ML SQ SCH ×4 (06:30→21:17)
[2020-06-16] MEDS: DIAZEPAM 5 MG TABLET GT SCH ×3 (06:33→21:13)
[2020-06-16] MEDS: MIDAZOLAM 100MG-0.9% NS 100ML 100 ML IV SCH (06:46)
[2020-06-16 06:48] LABS: ABG BASE EXCESS 9.8 mmol/L (-2.0-3.0); ABG HCO3 35.3 mmol/L (21.0-28.0); ABG OXYGEN SATURATION 91.9 % (95.0-99.0); ABG PCO2 50 mmHg (32-45)
[2020-06-16] MEDS: ALBUTEROL INHALER 90MCG/INH IH SCH (09:00)
[2020-06-16] MEDS: DOCUSATE NA 100MG/10ML UDCUP PO SCH ×2 (09:00→21:12)
[2020-06-16] MEDS: FUROSEMIDE 20MG VIAL IV SCH ×3 (09:28→22:45)
[2020-06-16] MEDS: THIAMINE HCL 100 MG/ML 2ML VIAL IVP SCH (09:29)
[2020-06-16] MEDS: ENOXAPARIN SODIUM 40 MG/0.4 ML SYRINGE SQ SCH ×2 (09:31→21:14)
[2020-06-16] MEDS: PANTOPRAZOLE 40 MG/VIAL IVP SCH ×2 (09:31→21:12)
[2020-06-16] MEDS: ASPIRIN 81MG CHEW TAB PO SCH (09:31)
[2020-06-16] MEDS: VANCOMYCIN 750MG + NS 250 ML IV SCH ×4 (09:34→20:53)
[2020-06-16] MEDS ORDERED: CISATRACURIUM BESYLATE 2 MG/ML 10ML VIAL IVP SCH (10:15)
[2020-06-16] MEDS ORDERED: POTASSIUM CHLORIDE 10MEQ/100ML 400 ML IV ONE (11:09)
[2020-06-16] MEDS: CISATRACURIUM BESYLATE 100 MG in 0.9%NACL 100ML 100 ML IV SCH (11:16)
[2020-06-16] MEDS ORDERED: FENTANYL CITRATE PF 50 MCG/1 ML 2ML VIAL ONE (17:12)
[2020-06-16 18:19] LABS: MAGNESIUM 2.1 mg/dL (1.80-2.40); POTASSIUM 4.7 mmol/L (3.5-5.1)
[2020-06-16] MEDS: INSULIN GLARGINE 100 UNITS/ML 10 ML VIAL SQ SCH (21:16)
[2020-06-17] VITALS (79 sets, daily range): BP systolic 104–253; BP diastolic 42–96
[2020-06-17] MEDS: MIDAZOLAM 100MG-0.9% NS 100ML 100 ML IV SCH (01:16)
[2020-06-17] MEDS: FENTANYL 2500MCG+NS 250ML 250 ML IV SCH (01:18)
[2020-06-17] MEDS: PROPOFOL 1000 MG/100 ML 100 ML IV PRN ×4 (01:18→21:28)
[2020-06-17 04:28] LABS: ABG BASE EXCESS 7.1 mmol/L (-2.0-3.0); ABG HCO3 34.9 mmol/L (21.0-28.0); ABG OXYGEN SATURATION 94.8 % (95.0-99.0); ABG PCO2 63 mmHg (32-45)
[2020-06-17 04:31] LABS: HEMATOCRIT 26.2 % (36-48); MEAN CORPUSCULAR HEMOGLOBIN 31.5 pg (27.0-33.0); MEAN CORPUSCULAR HGB CONC 30.5 g/dL (32.0-36.0); MEAN CORPUSCULAR VOLUME 103.1 fL (79-99); NUCLEATED RED BLOOD CELLS 0.2 % (0.0-0.19); PLATELET COUNT (AUTO) 156 K/uL (130-400); RED BLOOD CELL COUNT(AUTO) 2.54 MIL/uL (4.00-5.50); RED CELL DISTRIBUTION WIDTH 18.9 % (11.0-15.5); WHITE BLOOD COUNT (AUTO) 10.7 K/uL (4.8-10.8)
[2020-06-17 04:51] LABS: CREATININE 0.5 mg/dL (0.5-1.5); POTASSIUM 3.8 mmol/L (3.5-5.1)
[2020-06-17] MEDS ORDERED: PHARMACY COMMUNICATION MISC SCH ×3 (05:30→19:45)
[2020-06-17] MEDS: SOLU-MEDROL 40MG VIAL IVP SCH ×3 (05:42→21:11)
[2020-06-17] MEDS: DIAZEPAM 5 MG TABLET GT SCH ×3 (06:00→21:29)
[2020-06-17] MEDS: INSULIN HUMULIN R 100 UNIT/ML 3ML SQ SCH ×4 (06:06→21:25)
[2020-06-17 07:36] LABS: ABG BASE EXCESS 6.4 mmol/L (-2.0-3.0); ABG HCO3 33.9 mmol/L (21.0-28.0); ABG PCO2 61 mmHg (32-45)
[2020-06-17] MEDS: VANCOMYCIN 750MG + NS 250 ML IV SCH ×4 (08:20→21:12)
[2020-06-17] MEDS: PANTOPRAZOLE 40 MG/VIAL IVP SCH ×2 (08:21→21:12)
[2020-06-17] MEDS: ENOXAPARIN SODIUM 40 MG/0.4 ML SYRINGE SQ SCH ×2 (08:21→21:29)
[2020-06-17] MEDS: Vitamin B Complex/Vit C/Folic Acid PO SCH (08:22)
[2020-06-17] MEDS: ASPIRIN 81MG CHEW TAB PO SCH (08:22)
[2020-06-17] MEDS: DOCUSATE NA 100MG/10ML UDCUP PO SCH ×2 (08:22→21:13)
[2020-06-17] MEDS: THIAMINE HCL 100 MG/ML 2ML VIAL IVP SCH (08:23)
[2020-06-17] MEDS: PHARMACY COMMUNICATION MISC SCH ×2 (09:00→21:00)
[2020-06-17] MEDS ORDERED: HYDROCHLOROTHIAZIDE 25 MG TABLET PO SCH (11:45)
[2020-06-17] MEDS ORDERED: LABETALOL 20MG SYG IV PRN (11:45)
[2020-06-17] MEDS ORDERED: LOSARTAN 100 MG TABLET PO SCH (11:45)
[2020-06-17] MEDS: CISATRACURIUM BESYLATE 100 MG in 0.9%NACL 100ML 100 ML IV SCH (11:52)
[2020-06-17] MEDS: FUROSEMIDE 20MG VIAL IV SCH ×3 (14:29→21:36)
[2020-06-17] MEDS: INSULIN GLARGINE 100 UNITS/ML 10 ML VIAL SQ SCH (21:24)
[2020-06-18] VITALS (56 sets, daily range): BP systolic 115–222; BP diastolic 47–86
[2020-06-18] MEDS ORDERED: CISATRACURIUM BESYLATE 10 MG/ML 20ML VIAL IV ONE (03:09)
[2020-06-18] MEDS: SOLU-MEDROL 40MG VIAL IVP SCH ×3 (03:12→20:15)
[2020-06-18] MEDS: MIDAZOLAM 100MG-0.9% NS 100ML 100 ML IV SCH ×2 (03:13→23:28)
[2020-06-18] MEDS: PROPOFOL 1000 MG/100 ML 100 ML IV PRN ×3 (03:14→18:10)
[2020-06-18] MEDS ORDERED: PHARMACY COMMUNICATION MISC SCH ×2 (05:45→06:30)
[2020-06-18 05:53] LABS: HEMATOCRIT 27.3 % (36-48); MEAN CORPUSCULAR HEMOGLOBIN 31.5 pg (27.0-33.0); NUCLEATED RED BLOOD CELLS 0.4 % (0.0-0.19); RED BLOOD CELL COUNT(AUTO) 2.6 MIL/uL (4.00-5.50); RED CELL DISTRIBUTION WIDTH 18.6 % (11.0-15.5); WHITE BLOOD COUNT (AUTO) 11.2 K/uL (4.8-10.8)
[2020-06-18] MEDS: DIAZEPAM 5 MG TABLET GT SCH ×3 (06:00→22:51)
[2020-06-18 06:22] LABS: CREATININE 0.5 mg/dL (0.5-1.5); POTASSIUM 3.4 mmol/L (3.5-5.1)
[2020-06-18] MEDS ORDERED: CISATRACURIUM BESYLATE IV SCH ×3 (06:45→19:45)
[2020-06-18] MEDS ORDERED: NACL 0.9% IV SCH ×3 (06:45→19:45)
[2020-06-18] MEDS: FUROSEMIDE 20MG VIAL IV SCH ×3 (06:52→22:50)
[2020-06-18 07:09] LABS: ABG BASE EXCESS 8.4 mmol/L (-2.0-3.0); ABG HCO3 36.3 mmol/L (21.0-28.0); ABG OXYGEN SATURATION 90.3 % (95.0-99.0); ABG PCO2 64 mmHg (32-45)
[2020-06-18] MEDS: POTASSIUM CHLORIDE 20MEQ/100ML 100 ML IV PRN (07:18)
[2020-06-18] MEDS: INSULIN HUMULIN R 100 UNIT/ML 3ML SQ SCH ×4 (07:30→20:43)
[2020-06-18] MEDS: ENOXAPARIN SODIUM 40 MG/0.4 ML SYRINGE SQ SCH ×2 (08:14→20:42)
[2020-06-18] MEDS: DOCUSATE NA 100MG/10ML UDCUP PO SCH ×2 (08:15→20:43)
[2020-06-18] MEDS: ASPIRIN 81MG CHEW TAB PO SCH (08:15)
[2020-06-18] MEDS: LOSARTAN 100 MG TABLET PO SCH (08:15)
[2020-06-18] MEDS: Vitamin B Complex/Vit C/Folic Acid PO SCH (08:16)
[2020-06-18] MEDS: HYDROCHLOROTHIAZIDE 25 MG TABLET PO SCH (08:16)
[2020-06-18] MEDS: THIAMINE HCL 100 MG/ML 2ML VIAL IVP SCH (08:16)
[2020-06-18] MEDS: VANCOMYCIN 750MG + NS 250 ML IV SCH ×4 (08:41→20:54)
[2020-06-18] MEDS: PANTOPRAZOLE 40 MG/VIAL IVP SCH ×2 (08:58→20:38)
[2020-06-18] MEDS: PHARMACY COMMUNICATION MISC SCH (09:15)
[2020-06-18] MEDS: INSULIN GLARGINE 100 UNITS/ML 10 ML VIAL SQ SCH (20:46)
[2020-06-18] MEDS ORDERED: [UNRECOGNIZED DRUG - OTHER] IVPB SCH (23:00)
[2020-06-18] MEDS ORDERED: FENTANYL CITRATE IVPB SCH (23:00)
[2020-06-18] MEDS ORDERED: FENTANYL 2500MCG+NS 250ML 250 ML IV ONE (23:29)
[2020-06-18] MEDS: FENTANYL 2500MCG+NS 250ML 250 ML IV SCH (23:30)
[2020-06-19] VITALS (41 sets, daily range): BP systolic 94–216; BP diastolic 32–83
[2020-06-19] MEDS: PROPOFOL 1000 MG/100 ML 100 ML IV PRN ×4 (03:22→20:21)
[2020-06-19] MEDS: SOLU-MEDROL 40MG VIAL IVP SCH ×3 (04:00→21:38)
[2020-06-19 05:26] LABS: BASOPHILS % (AUTO) 0.1 % (0.0-5.0); EOSINOPHILS % (AUTO) 1.6 % (0.0-8.0); HEMATOCRIT 28.3 % (36-48); LYMPHOCYTES % (AUTO) 7.7 % (21.0-51.0); MEAN CORPUSCULAR HEMOGLOBIN 32.1 pg (27.0-33.0); MEAN CORPUSCULAR HGB CONC 30.7 g/dL (32.0-36.0); MEAN CORPUSCULAR VOLUME 104.4 fL (79-99); MONOCYTES % (AUTO) 5.6 % (3.0-13.0); NEUTROPHILS % (AUTO) 83.5 % (40.0-77.0); NUCLEATED RED BLOOD CELLS 0.2 % (0.0-0.19); PLATELET COUNT (AUTO) 176 K/uL (130-400); RED BLOOD CELL COUNT(AUTO) 2.71 MIL/uL (4.00-5.50); RED CELL DISTRIBUTION WIDTH 18.3 % (11.0-15.5); WHITE BLOOD COUNT (AUTO) 8.9 K/uL (4.8-10.8)
[2020-06-19 05:50] LABS: ALBUMIN 1.9 g/dL (3.5-5.0); BILIRUBIN,TOTAL 0.6 mg/dL (0.2-1.0); CREATININE 0.5 mg/dL (0.5-1.5); CRP QUANTITATIVE 12.9 mg/L (0.00-9.0); POTASSIUM 3.4 mmol/L (3.5-5.1); TOTAL PROTEIN, SERUM 4.6 g/dL (6.0-8.3)
[2020-06-19] MEDS: POTASSIUM CHLORIDE 20MEQ/100ML 100 ML IV PRN (06:41)
[2020-06-19] MEDS: FUROSEMIDE 20MG VIAL IV SCH ×2 (06:41→14:04)
[2020-06-19] MEDS ORDERED: PHARMACY COMMUNICATION MISC SCH (07:15)
[2020-06-19 07:19] LABS: ABG BASE EXCESS 12.3 mmol/L (-2.0-3.0); ABG HCO3 41.7 mmol/L (21.0-28.0); ABG OXYGEN SATURATION 89.8 % (95.0-99.0); ABG PCO2 77 mmHg (32-45)
[2020-06-19] MEDS: DOCUSATE NA 100MG/10ML UDCUP PO SCH ×2 (08:51→21:08)
[2020-06-19] MEDS: ASPIRIN 81MG CHEW TAB PO SCH (08:51)
[2020-06-19] MEDS: DIAZEPAM 5 MG TABLET GT SCH ×3 (08:52→23:59)
[2020-06-19] MEDS: PANTOPRAZOLE 40 MG/VIAL IVP SCH ×2 (09:00→21:09)
[2020-06-19] MEDS: PHARMACY COMMUNICATION MISC SCH (09:00)
[2020-06-19] MEDS: Vitamin B Complex/Vit C/Folic Acid PO SCH (09:01)
[2020-06-19] MEDS: LOSARTAN 100 MG TABLET PO SCH (09:01)
[2020-06-19] MEDS: HYDROCHLOROTHIAZIDE 25 MG TABLET PO SCH (09:01)
[2020-06-19] MEDS: THIAMINE HCL 100 MG/ML 2ML VIAL IVP SCH (09:01)
[2020-06-19] MEDS: ENOXAPARIN SODIUM 40 MG/0.4 ML SYRINGE SQ SCH ×2 (09:02→20:22)
[2020-06-19] MEDS ORDERED: CISATRACURIUM BESYLATE IV SCH ×2 (09:15→15:15)
[2020-06-19] MEDS ORDERED: NACL 0.9% IV SCH ×2 (09:15→15:15)
[2020-06-19] MEDS ORDERED: PANTOPRAZOLE 40 MG TAB DR ONE ×2 (09:21→10:27)
[2020-06-19] MEDS: VANCOMYCIN 750MG + NS 250 ML IV SCH ×2 (09:26)
[2020-06-19] MEDS: INSULIN HUMULIN R 100 UNIT/ML 3ML SQ SCH ×4 (10:11→21:00)
[2020-06-19] MEDS: MIDAZOLAM 100MG-0.9% NS 100ML 100 ML IV SCH (14:17)
[2020-06-19] MEDS: INSULIN GLARGINE 100 UNITS/ML 10 ML VIAL SQ SCH (21:08)
[2020-06-20] VITALS (79 sets, daily range): BP systolic 91–188; BP diastolic 36–90
[2020-06-20 04:52] LABS: ABG BASE EXCESS 15.2 mmol/L (-2.0-3.0); ABG HCO3 44.1 mmol/L (21.0-28.0); ABG OXYGEN SATURATION 82.3 % (95.0-99.0); ABG PCO2 73 mmHg (32-45)
[2020-06-20] MEDS: PROPOFOL 1000 MG/100 ML 100 ML IV PRN ×5 (05:36→20:51)
[2020-06-20] MEDS: INSULIN HUMULIN R 100 UNIT/ML 3ML SQ SCH ×4 (05:52→20:21)
[2020-06-20 05:55] LABS: BASOPHILS % (AUTO) 0.3 % (0.0-5.0); EOSINOPHILS % (AUTO) 3.4 % (0.0-8.0); HEMATOCRIT 29.3 % (36-48); LYMPHOCYTES % (AUTO) 7.5 % (21.0-51.0); MEAN CORPUSCULAR HEMOGLOBIN 31.5 pg (27.0-33.0); NEUTROPHILS % (AUTO) 81.7 % (40.0-77.0); NUCLEATED RED BLOOD CELLS 0.4 % (0.0-0.19); PLATELET COUNT (AUTO) 198 K/uL (130-400); RED BLOOD CELL COUNT(AUTO) 2.79 MIL/uL (4.00-5.50); RED CELL DISTRIBUTION WIDTH 18.2 % (11.0-15.5); WHITE BLOOD COUNT (AUTO) 9.6 K/uL (4.8-10.8)
[2020-06-20 06:07] LABS: ALBUMIN 2.1 g/dL (3.5-5.0); BILIRUBIN,TOTAL 0.8 mg/dL (0.2-1.0); CREATININE 0.5 mg/dL (0.5-1.5); PHOSPHORUS 3.3 mg/dL (2.5-4.9); POTASSIUM 3.6 mmol/L (3.5-5.1); TOTAL PROTEIN, SERUM 5.5 g/dL (6.0-8.3)
[2020-06-20] MEDS: FENTANYL 2500MCG+NS 250ML 250 ML IV SCH ×2 (07:29→19:05)
[2020-06-20] MEDS: PANTOPRAZOLE 40 MG/VIAL IVP SCH ×2 (09:53→20:15)
[2020-06-20] MEDS: DIAZEPAM 5 MG TABLET GT SCH ×3 (09:53→20:14)
[2020-06-20] MEDS: SOLU-MEDROL 40MG VIAL IVP SCH ×2 (09:53→20:20)
[2020-06-20] MEDS: LOSARTAN 100 MG TABLET PO SCH (09:54)
[2020-06-20] MEDS: DOCUSATE NA 100MG/10ML UDCUP PO SCH ×2 (09:54→20:21)
[2020-06-20] MEDS: Vitamin B Complex/Vit C/Folic Acid PO SCH (09:54)
[2020-06-20] MEDS: ENOXAPARIN SODIUM 40 MG/0.4 ML SYRINGE SQ SCH ×2 (09:54→20:15)
[2020-06-20] MEDS: THIAMINE HCL 100 MG/ML 2ML VIAL IVP SCH (09:54)
[2020-06-20] MEDS: HYDROCHLOROTHIAZIDE 25 MG TABLET PO SCH (09:54)
[2020-06-20] MEDS: ASPIRIN 81MG CHEW TAB PO SCH (09:54)
[2020-06-20] MEDS: FENTANYL 75 MCG/HR PATCH TD SCH (13:45)
[2020-06-20] MEDS: INSULIN GLARGINE 100 UNITS/ML 10 ML VIAL SQ SCH (20:19)
[2020-06-21] VITALS (66 sets, daily range): BP systolic 78–228; BP diastolic 34–80
[2020-06-21] MEDS: DIAZEPAM 5 MG TABLET GT SCH ×4 (01:54→20:59)
[2020-06-21] MEDS: PROPOFOL 1000 MG/100 ML 100 ML IV PRN ×4 (01:56→23:23)
[2020-06-21 05:57] LABS: BASOPHILS % (AUTO) 0.1 % (0.0-5.0); EOSINOPHILS % (AUTO) 3.3 % (0.0-8.0); HEMATOCRIT 26.5 % (36-48); LYMPHOCYTES % (AUTO) 8.8 % (21.0-51.0); MEAN CORPUSCULAR HEMOGLOBIN 31.9 pg (27.0-33.0); MEAN CORPUSCULAR HGB CONC 30.9 g/dL (32.0-36.0); MEAN CORPUSCULAR VOLUME 103.1 fL (79-99); MONOCYTES % (AUTO) 3.1 % (3.0-13.0); NEUTROPHILS % (AUTO) 82.3 % (40.0-77.0); NUCLEATED RED BLOOD CELLS 0.4 % (0.0-0.19); PLATELET COUNT (AUTO) 198 K/uL (130-400); RED BLOOD CELL COUNT(AUTO) 2.57 MIL/uL (4.00-5.50); WHITE BLOOD COUNT (AUTO) 7.5 K/uL (4.8-10.8)
[2020-06-21 06:12] LABS: ALBUMIN 1.7 g/dL (3.5-5.0); BILIRUBIN,TOTAL 0.7 mg/dL (0.2-1.0); CREATININE 0.4 mg/dL (0.5-1.5); POTASSIUM 3.6 mmol/L (3.5-5.1)
[2020-06-21] MEDS: POTASSIUM CHLORIDE 20MEQ/100ML 100 ML IV PRN (06:30)
[2020-06-21] MEDS: INSULIN HUMULIN R 100 UNIT/ML 3ML SQ SCH ×4 (07:30→21:00)
[2020-06-21] MEDS: DOCUSATE NA 100MG/10ML UDCUP PO SCH ×2 (08:44→21:00)
[2020-06-21] MEDS: SOLU-MEDROL 40MG VIAL IVP SCH ×2 (08:44→21:00)
[2020-06-21] MEDS: Vitamin B Complex/Vit C/Folic Acid PO SCH (08:44)
[2020-06-21] MEDS: HYDROCHLOROTHIAZIDE 25 MG TABLET PO SCH (08:44)
[2020-06-21] MEDS: LOSARTAN 100 MG TABLET PO SCH (08:44)
[2020-06-21] MEDS: ENOXAPARIN SODIUM 40 MG/0.4 ML SYRINGE SQ SCH ×2 (08:44→21:03)
[2020-06-21] MEDS: THIAMINE HCL 100 MG/ML 2ML VIAL IVP SCH (08:44)
[2020-06-21] MEDS: PANTOPRAZOLE 40 MG/VIAL IVP SCH ×2 (08:45→21:00)
[2020-06-21] MEDS: ASPIRIN 81MG CHEW TAB PO SCH (08:45)
[2020-06-21] MEDS: FENTANYL 75 MCG/HR PATCH TD SCH (09:09)
[2020-06-21] MEDS: MIDAZOLAM 100MG-0.9% NS 100ML 100 ML IV SCH (10:04)
[2020-06-21] MEDS: FENTANYL 2500MCG+NS 250ML 250 ML IV SCH (14:05)
[2020-06-21 14:28] LABS: ABG BASE EXCESS 14.6 mmol/L (-2.0-3.0); ABG HCO3 41.7 mmol/L (21.0-28.0); ABG OXYGEN SATURATION 94.1 % (95.0-99.0); ABG PCO2 69 mmHg (32-45)
[2020-06-21] MEDS: INSULIN GLARGINE 100 UNITS/ML 10 ML VIAL SQ SCH (21:02)
[2020-06-22] VITALS (26 sets, daily range): BP systolic 73–155; BP diastolic 33–66
[2020-06-22] MEDS: DIAZEPAM 5 MG TABLET GT SCH ×4 (02:38→19:58)
[2020-06-22] MEDS: FENTANYL 2500MCG+NS 250ML 250 ML IV SCH ×2 (03:51→13:31)
[2020-06-22] MEDS: PROPOFOL 1000 MG/100 ML 100 ML IV PRN ×3 (03:52→13:50)
[2020-06-22 04:11] LABS: BASOPHILS % (AUTO) 0.2 % (0.0-5.0); EOSINOPHILS % (AUTO) 2.8 % (0.0-8.0); HEMATOCRIT 25.7 % (36-48); LYMPHOCYTES % (AUTO) 5.3 % (21.0-51.0); MEAN CORPUSCULAR HEMOGLOBIN 35.6 pg (27.0-33.0); MEAN CORPUSCULAR HGB CONC 34.2 g/dL (32.0-36.0); MONOCYTES % (AUTO) 2.5 % (3.0-13.0); NEUTROPHILS % (AUTO) 87.8 % (40.0-77.0); NUCLEATED RED BLOOD CELLS 0.6 % (0.0-0.19); PLATELET COUNT (AUTO) 208 K/uL (130-400); RED BLOOD CELL COUNT(AUTO) 2.47 MIL/uL (4.00-5.50); RED CELL DISTRIBUTION WIDTH 18.4 % (11.0-15.5); WHITE BLOOD COUNT (AUTO) 10.5 K/uL (4.8-10.8)
[2020-06-22 04:13] LABS: ABG BASE EXCESS 10.6 mmol/L (-2.0-3.0); ABG HCO3 38.6 mmol/L (21.0-28.0); ABG OXYGEN SATURATION 83.9 % (95.0-99.0); ABG PCO2 66 mmHg (32-45)
[2020-06-22 04:31] LABS: ALBUMIN 1.5 g/dL (3.5-5.0); BILIRUBIN,TOTAL 1.4 mg/dL (0.2-1.0); MAGNESIUM 1.6 mg/dL (1.80-2.40); POTASSIUM 3.8 mmol/L (3.5-5.1)
[2020-06-22 05:20] LABS: CREATININE 0.4 mg/dL (0.5-1.5)
[2020-06-22 05:21] LABS: TOTAL PROTEIN, SERUM 4.8 g/dL (6.0-8.3)
[2020-06-22] MEDS: POTASSIUM CHLORIDE 20MEQ/100ML 100 ML IV PRN (05:48)
[2020-06-22] MEDS: MAGNESIUM 2GM PREMIX 50ML 50 ML IV PRN (05:48)
[2020-06-22] MEDS: MIDAZOLAM 100MG-0.9% NS 100ML 100 ML IV SCH (06:23)
[2020-06-22] MEDS: INSULIN HUMULIN R 100 UNIT/ML 3ML SQ SCH ×4 (07:24→20:16)
[2020-06-22] MEDS: SOLU-MEDROL 40MG VIAL IVP SCH ×2 (08:41→20:00)
[2020-06-22] MEDS: Vitamin B Complex/Vit C/Folic Acid PO SCH (08:41)
[2020-06-22] MEDS: LOSARTAN 100 MG TABLET PO SCH (08:41)
[2020-06-22] MEDS: DOCUSATE NA 100MG/10ML UDCUP PO SCH ×2 (08:41→20:00)
[2020-06-22] MEDS: ENOXAPARIN SODIUM 40 MG/0.4 ML SYRINGE SQ SCH ×2 (08:42→20:02)
[2020-06-22] MEDS: ASPIRIN 81MG CHEW TAB PO SCH (08:42)
[2020-06-22] MEDS: HYDROCHLOROTHIAZIDE 25 MG TABLET PO SCH (08:42)
[2020-06-22] MEDS: THIAMINE HCL 100 MG/ML 2ML VIAL IVP SCH (08:43)
[2020-06-22] MEDS: PANTOPRAZOLE 40 MG/VIAL IVP SCH ×2 (08:43→20:00)
[2020-06-22] MEDS: INSULIN GLARGINE 100 UNITS/ML 10 ML VIAL SQ SCH (20:02)
[2020-06-23] VITALS (13 sets, daily range): BP systolic 108–155; BP diastolic 45–74
[2020-06-23] MEDS: FENTANYL 2500MCG+NS 250ML 250 ML IV SCH ×2 (02:17→21:20)
[2020-06-23] MEDS: MIDAZOLAM 100MG-0.9% NS 100ML 100 ML IV SCH (02:18)
[2020-06-23] MEDS: DIAZEPAM 5 MG TABLET GT SCH ×4 (02:20→20:40)
[2020-06-23] MEDS: PROPOFOL 1000 MG/100 ML 100 ML IV PRN ×2 (04:27→11:33)
[2020-06-23 06:22] LABS: HEMATOCRIT 26.1 % (36-48); MEAN CORPUSCULAR HEMOGLOBIN 32.5 pg (27.0-33.0); MEAN CORPUSCULAR VOLUME 104.8 fL (79-99); NUCLEATED RED BLOOD CELLS 0.4 % (0.0-0.19); RED BLOOD CELL COUNT(AUTO) 2.49 MIL/uL (4.00-5.50); RED CELL DISTRIBUTION WIDTH 18.6 % (11.0-15.5)
[2020-06-23 06:36] LABS: CREATININE 0.4 mg/dL (0.5-1.5)
[2020-06-23] MEDS: INSULIN HUMULIN R 100 UNIT/ML 3ML SQ SCH ×4 (07:30→20:37)
[2020-06-23] MEDS: DOCUSATE NA 100MG/10ML UDCUP PO SCH ×2 (09:00→20:41)
[2020-06-23] MEDS: PANTOPRAZOLE 40 MG/VIAL IVP SCH ×2 (09:43→21:00)
[2020-06-23] MEDS: ENOXAPARIN SODIUM 40 MG/0.4 ML SYRINGE SQ SCH ×2 (09:44→20:41)
[2020-06-23] MEDS: SOLU-MEDROL 40MG VIAL IVP SCH ×2 (09:44→20:40)
[2020-06-23] MEDS: THIAMINE HCL 100 MG/ML 2ML VIAL IVP SCH (09:45)
[2020-06-23] MEDS: Vitamin B Complex/Vit C/Folic Acid PO SCH (09:45)
[2020-06-23] MEDS: ASPIRIN 81MG CHEW TAB PO SCH (09:45)
[2020-06-23] MEDS: LOSARTAN 100 MG TABLET PO SCH (09:45)
[2020-06-23] MEDS: HYDROCHLOROTHIAZIDE 25 MG TABLET PO SCH (09:46)
[2020-06-23] MEDS: FENTANYL 75 MCG/HR PATCH TD SCH (15:03)
[2020-06-23] MEDS ORDERED: PHARMACY COMMUNICATION MISC SCH (16:45)
[2020-06-23] MEDS ORDERED: PROPOFOL 1000 MG/100 ML 100 ML IV ONE (19:17)
[2020-06-23] MEDS: INSULIN GLARGINE 100 UNITS/ML 10 ML VIAL SQ SCH (20:57)
[2020-06-24] VITALS (24 sets, daily range): BP systolic 111–194; BP diastolic 48–92
[2020-06-24] MEDS: ACETAMINOPHEN 325 MG TAB PO PRN (00:05)
[2020-06-24] MEDS: DIAZEPAM 5 MG TABLET GT SCH ×4 (01:14→20:58)
[2020-06-24 03:34] LABS: ABG BASE EXCESS 13.5 mmol/L (-2.0-3.0); ABG HCO3 40.7 mmol/L (21.0-28.0); ABG OXYGEN SATURATION 96.3 % (95.0-99.0); ABG PCO2 61 mmHg (32-45)
[2020-06-24] MEDS ORDERED: PROPOFOL 1000 MG/100 ML 100 ML IV ONE ×4 (04:09→19:10)
[2020-06-24 04:39] LABS: BASOPHILS % (AUTO) 0.2 % (0.0-5.0); EOSINOPHILS % (AUTO) 1.5 % (0.0-8.0); HEMATOCRIT 36.7 % (36-48); LYMPHOCYTES % (AUTO) 5.7 % (21.0-51.0); MEAN CORPUSCULAR HEMOGLOBIN 32.1 pg (27.0-33.0); MEAN CORPUSCULAR HGB CONC 30.8 g/dL (32.0-36.0); MEAN CORPUSCULAR VOLUME 104.3 fL (79-99); MONOCYTES % (AUTO) 2.6 % (3.0-13.0); NEUTROPHILS % (AUTO) 88.9 % (40.0-77.0); PLATELET COUNT (AUTO) 149 K/uL (130-400); RED BLOOD CELL COUNT(AUTO) 3.52 MIL/uL (4.00-5.50); RED CELL DISTRIBUTION WIDTH 18.6 % (11.0-15.5); WHITE BLOOD COUNT (AUTO) 6.2 K/uL (4.8-10.8)
[2020-06-24 05:06] LABS: ALBUMIN 1.6 g/dL (3.5-5.0); BILIRUBIN,DIRECT 0.3 mg/dL (0.0-0.3); BILIRUBIN,TOTAL 0.7 mg/dL (0.2-1.0); CREATININE 0.4 mg/dL (0.5-1.5); MAGNESIUM 1.9 mg/dL (1.80-2.40); POTASSIUM 4.4 mmol/L (3.5-5.1); TOTAL PROTEIN, SERUM 5.3 g/dL (6.0-8.3)
[2020-06-24] MEDS: MIDAZOLAM 100MG-0.9% NS 100ML 100 ML IV SCH ×2 (05:17→17:40)
[2020-06-24] MEDS: MAGNESIUM 2GM PREMIX 50ML 50 ML IV PRN (05:44)
[2020-06-24] MEDS: INSULIN HUMULIN R 100 UNIT/ML 3ML SQ SCH ×4 (06:33→21:00)
[2020-06-24] MEDS: Vitamin B Complex/Vit C/Folic Acid PO SCH (11:03)
[2020-06-24] MEDS: HYDROCHLOROTHIAZIDE 25 MG TABLET PO SCH (11:03)
[2020-06-24] MEDS: ASPIRIN 81MG CHEW TAB PO SCH (11:03)
[2020-06-24] MEDS: PANTOPRAZOLE 40 MG/VIAL IVP SCH ×2 (11:03→21:03)
[2020-06-24] MEDS: SOLU-MEDROL 40MG VIAL IVP SCH ×2 (11:04→20:58)
[2020-06-24] MEDS: DOCUSATE NA 100MG/10ML UDCUP PO SCH ×2 (11:04→20:58)
[2020-06-24] MEDS: ENOXAPARIN SODIUM 40 MG/0.4 ML SYRINGE SQ SCH ×2 (11:05→20:59)
[2020-06-24] MEDS: THIAMINE HCL 100 MG/ML 2ML VIAL IVP SCH (11:08)
[2020-06-24] MEDS: LOSARTAN 100 MG TABLET PO SCH (11:08)
[2020-06-24] MEDS ORDERED: VANCOMYCIN PROTOCOL PER PHARMACY IV SCH (17:15)
[2020-06-24] MEDS: FENTANYL 2500MCG+NS 250ML 250 ML IV SCH (18:50)
[2020-06-24] MEDS: VANCOMYCIN 1G 1.5 GM in 0.9% NACL 250ML 250 ML IV SCH (21:00)
[2020-06-24] MEDS: INSULIN GLARGINE 100 UNITS/ML 10 ML VIAL SQ SCH (21:05)
[2020-06-25] VITALS (21 sets, daily range): BP systolic 98–156; BP diastolic 52–71
[2020-06-25] MEDS: DIAZEPAM 5 MG TABLET GT SCH ×4 (01:45→17:36)
[2020-06-25] MEDS: MIDAZOLAM 100MG-0.9% NS 100ML 100 ML IV SCH ×2 (03:53→20:21)
[2020-06-25] MEDS: INSULIN HUMULIN R 100 UNIT/ML 3ML SQ SCH ×4 (05:57→21:00)
[2020-06-25] MEDS: ENOXAPARIN SODIUM 40 MG/0.4 ML SYRINGE SQ SCH ×2 (08:28→20:26)
[2020-06-25] MEDS: PANTOPRAZOLE 40 MG/VIAL IVP SCH ×2 (08:28→20:25)
[2020-06-25] MEDS: Vitamin B Complex/Vit C/Folic Acid PO SCH (08:29)
[2020-06-25] MEDS: HYDROCHLOROTHIAZIDE 25 MG TABLET PO SCH (08:29)
[2020-06-25] MEDS: ASPIRIN 81MG CHEW TAB PO SCH (08:29)
[2020-06-25] MEDS: THIAMINE HCL 100 MG/ML 2ML VIAL IVP SCH (08:29)
[2020-06-25] MEDS: LOSARTAN 100 MG TABLET PO SCH (08:29)
[2020-06-25] MEDS: DOCUSATE NA 100MG/10ML UDCUP PO SCH ×2 (08:30→20:25)
[2020-06-25] MEDS: SOLU-MEDROL 40MG VIAL IVP SCH ×2 (08:33→22:01)
[2020-06-25] MEDS ORDERED: PROPOFOL 1000 MG/100 ML 100 ML IV ONE ×2 (08:33→17:43)
[2020-06-25 10:18] LABS: ABG BASE EXCESS 13.4 mmol/L (-2.0-3.0); ABG HCO3 42.3 mmol/L (21.0-28.0); ABG OXYGEN SATURATION 54.7 % (95.0-99.0); ABG PCO2 87 mmHg (32-45)
[2020-06-25] MEDS ORDERED: FUROSEMIDE 100MG VIAL IV SCH (10:23)
[2020-06-25] MEDS ORDERED: FUROSEMIDE 100MG VIAL ONE (10:29)
[2020-06-25] MEDS ORDERED: NOREPINEPHRIN 4MG/NS 250ML 250 ML IV SCH (10:30)
[2020-06-25] MEDS: VANCOMYCIN 1G 1.5 GM in 0.9% NACL 250ML 250 ML IV SCH ×2 (11:23→20:23)
[2020-06-25] MEDS ORDERED: PHENYLEPHRINE HCL 100 MG in 0.9% NACL 250ML 250 ML IV SCH (11:30)
[2020-06-25] MEDS ORDERED: VASOPRESSIN 20 UNITS in 0.9%NACL 100ML 100 ML IV SCH (11:30)
[2020-06-25] MEDS ORDERED: SODIUM BICARB 50MEQ 50ML VIAL IV SCH (13:14)
[2020-06-25 18:43] LABS: ABG BASE EXCESS 16.7 mmol/L (-2.0-3.0); ABG HCO3 43.6 mmol/L (21.0-28.0); ABG OXYGEN SATURATION 92.8 % (95.0-99.0); ABG PCO2 60 mmHg (32-45)
[2020-06-25] MEDS: INSULIN GLARGINE 100 UNITS/ML 10 ML VIAL SQ SCH (21:00)
[2020-06-26] VITALS (27 sets, daily range): BP systolic 91–171; BP diastolic 47–88
[2020-06-26] MEDS ORDERED: PROPOFOL 1000 MG/100 ML 100 ML IV ONE (00:28)
[2020-06-26] MEDS: DIAZEPAM 5 MG TABLET GT SCH ×4 (01:45→19:45)
[2020-06-26] MEDS: FENTANYL 2500MCG+NS 250ML 250 ML IV SCH (02:34)
[2020-06-26 03:51] LABS: ABG BASE EXCESS 15.6 mmol/L (-2.0-3.0); ABG HCO3 42.5 mmol/L (21.0-28.0); ABG PCO2 59 mmHg (32-45)
[2020-06-26 05:15] LABS: ALBUMIN 1.6 g/dL (3.5-5.0); BILIRUBIN,TOTAL 0.5 mg/dL (0.2-1.0); CREATININE 0.4 mg/dL (0.5-1.5); POTASSIUM 3.7 mmol/L (3.5-5.1); TOTAL PROTEIN, SERUM 5.2 g/dL (6.0-8.3)
[2020-06-26] MEDS: PROPOFOL 1000 MG/100 ML IV PRN ×4 (05:20→23:00)
[2020-06-26] MEDS: INSULIN HUMULIN R 100 UNIT/ML 3ML SQ SCH ×4 (06:42→21:00)
[2020-06-26 06:56] LABS: BASOPHILS % (AUTO) 0.2 % (0.0-5.0); EOSINOPHILS % (AUTO) 4.5 % (0.0-8.0); HEMATOCRIT 24.4 % (36-48); LYMPHOCYTES % (AUTO) 8.6 % (21.0-51.0); MEAN CORPUSCULAR HEMOGLOBIN 32.5 pg (27.0-33.0); MEAN CORPUSCULAR HGB CONC 30.7 g/dL (32.0-36.0); MEAN CORPUSCULAR VOLUME 105.6 fL (79-99); NEUTROPHILS % (AUTO) 78.8 % (40.0-77.0); NUCLEATED RED BLOOD CELLS 0.4 % (0.0-0.19); PLATELET COUNT (AUTO) 261 K/uL (130-400); RED BLOOD CELL COUNT(AUTO) 2.31 MIL/uL (4.00-5.50); WHITE BLOOD COUNT (AUTO) 8.3 K/uL (4.8-10.8)
[2020-06-26] MEDS: MIDAZOLAM 100MG-0.9% NS 100ML 100 ML IV SCH ×2 (07:07→17:33)
[2020-06-26 08:02] LABS: MAGNESIUM 1.7 mg/dL (1.80-2.40); PHOSPHORUS 3.8 mg/dL (2.5-4.9)
[2020-06-26] MEDS: Vitamin B Complex/Vit C/Folic Acid PO SCH (08:02)
[2020-06-26] MEDS: ENOXAPARIN SODIUM 40 MG/0.4 ML SYRINGE SQ SCH ×2 (08:04→21:26)
[2020-06-26] MEDS: LOSARTAN 100 MG TABLET PO SCH (08:05)
[2020-06-26] MEDS: DOCUSATE NA 100MG/10ML UDCUP PO SCH ×2 (08:05→21:24)
[2020-06-26] MEDS: THIAMINE HCL 100 MG/ML 2ML VIAL IVP SCH (08:06)
[2020-06-26] MEDS: ASPIRIN 81MG CHEW TAB PO SCH (08:06)
[2020-06-26] MEDS: HYDROCHLOROTHIAZIDE 25 MG TABLET PO SCH (08:07)
[2020-06-26] MEDS: SOLU-MEDROL 40MG VIAL IVP SCH ×2 (08:13→21:24)
[2020-06-26] MEDS: VANCOMYCIN 1G 1.5 GM in 0.9% NACL 250ML 250 ML IV SCH ×2 (08:15→21:39)
[2020-06-26] MEDS: PANTOPRAZOLE 40 MG/VIAL IVP SCH ×2 (08:15→21:24)
[2020-06-26] MEDS ORDERED: ALTEPLASE 2MG VIAL 2 MG/VIAL VIAL IVCATH PRN (11:30)
[2020-06-26] MEDS: INSULIN GLARGINE 100 UNITS/ML 10 ML VIAL SQ SCH (21:27)
[2020-06-27] VITALS (26 sets, daily range): BP systolic 95–150; BP diastolic 47–75
[2020-06-27] MEDS: PROPOFOL 1000 MG/100 ML IV PRN ×4 (03:58→17:30)
[2020-06-27 06:03] LABS: HEMATOCRIT 26.2 % (36-48); MEAN CORPUSCULAR HEMOGLOBIN 32.3 pg (27.0-33.0); MEAN CORPUSCULAR HGB CONC 30.9 g/dL (32.0-36.0); MEAN CORPUSCULAR VOLUME 104.4 fL (79-99); NUCLEATED RED BLOOD CELLS 0.7 % (0.0-0.19); PLATELET COUNT (AUTO) 265 K/uL (130-400); RED BLOOD CELL COUNT(AUTO) 2.51 MIL/uL (4.00-5.50); RED CELL DISTRIBUTION WIDTH 17.7 % (11.0-15.5); WHITE BLOOD COUNT (AUTO) 7.7 K/uL (4.8-10.8)
[2020-06-27 06:06] LABS: CREATININE 0.3 mg/dL (0.5-1.5); POTASSIUM 3.6 mmol/L (3.5-5.1)
[2020-06-27 06:30] LABS: BAND NEUTROPHILS % (MANUAL) 14 % (0-2); BASOPHILS % (MANUAL) 1 % (0-2); EOSINOPHILS % (MANUAL) 11 % (1-6); LYMPHOCYTES % (MANUAL) 2 % (22-44); MAN.DIFF COMMENT-IMPRESSION MANUAL DIFFERENTIAL; MONOCYTES % (MANUAL) 6 % (2-9); REACTIVE LYMPHOCYTES 1 % (0-0); SEGMENTED NEUTROPHILS % 65 % (40-70)
[2020-06-27] MEDS: MIDAZOLAM 100MG-0.9% NS 100ML 100 ML IV SCH ×2 (06:58→18:01)
[2020-06-27] MEDS: DIAZEPAM 5 MG TABLET GT SCH ×4 (07:06→21:37)
[2020-06-27 07:07] LABS: ABG HCO3 40.4 mmol/L (21.0-28.0); ABG OXYGEN SATURATION 97.1 % (95.0-99.0); ABG PCO2 56 mmHg (32-45)
[2020-06-27] MEDS: INSULIN HUMULIN R 100 UNIT/ML 3ML SQ SCH ×4 (07:30→20:08)
[2020-06-27] MEDS: DOCUSATE NA 100MG/10ML UDCUP PO SCH ×2 (09:00→20:59)
[2020-06-27] MEDS: FENTANYL 2500MCG+NS 250ML 250 ML IV SCH (09:02)
[2020-06-27] MEDS: PANTOPRAZOLE 40 MG/VIAL IVP SCH ×2 (09:28→21:34)
[2020-06-27] MEDS: SOLU-MEDROL 40MG VIAL IVP SCH ×2 (09:28→20:59)
[2020-06-27] MEDS: THIAMINE HCL 100 MG/ML 2ML VIAL IVP SCH (09:29)
[2020-06-27] MEDS: Vitamin B Complex/Vit C/Folic Acid PO SCH (09:29)
[2020-06-27] MEDS: HYDROCHLOROTHIAZIDE 25 MG TABLET PO SCH (09:29)
[2020-06-27] MEDS: LOSARTAN 100 MG TABLET PO SCH (09:29)
[2020-06-27] MEDS: ENOXAPARIN SODIUM 40 MG/0.4 ML SYRINGE SQ SCH ×2 (09:30→20:58)
[2020-06-27] MEDS: ASPIRIN 81MG CHEW TAB PO SCH (09:33)
[2020-06-27] MEDS: VANCOMYCIN 1G 1.5 GM in 0.9% NACL 250ML 250 ML IV SCH (09:34)
[2020-06-27] MEDS ORDERED: ARTIFICAL TEARS SOL 15 ML OU PRN (10:15)
[2020-06-27] MEDS ORDERED: FUROSEMIDE 40MG VIAL IV SCH (10:15)
[2020-06-27] MEDS: POTASSIUM CHLORIDE 20MEQ/100ML 100 ML IV PRN (13:02)
[2020-06-27] MEDS: CHLORHEXIDINE GLUCONATE 473 ML MOUTHWASH MM SCH ×3 (13:03→22:15)
[2020-06-27] MEDS ORDERED: ROCURONIUM BROMIDE 100 MG in 0.9%NACL 100ML 100 ML IV SCH (18:30)
[2020-06-27] MEDS: FUROSEMIDE 20MG VIAL IV SCH (20:59)
[2020-06-27] MEDS: INSULIN GLARGINE 100 UNITS/ML 10 ML VIAL SQ SCH (21:01)
[2020-06-28] VITALS (32 sets, daily range): BP systolic 95–149; BP diastolic 49–84
[2020-06-28] MEDS: DIAZEPAM 5 MG TABLET GT SCH ×4 (00:36→20:06)
[2020-06-28] MEDS: PROPOFOL 1000 MG/100 ML IV PRN ×4 (01:43→22:13)
[2020-06-28] MEDS: MIDAZOLAM 100MG-0.9% NS 100ML 100 ML IV SCH ×2 (03:26→14:00)
[2020-06-28] MEDS: CHLORHEXIDINE GLUCONATE 473 ML MOUTHWASH MM SCH ×4 (03:27→22:51)
[2020-06-28 06:17] LABS: BASOPHILS % (AUTO) 0.2 % (0.0-5.0); EOSINOPHILS % (AUTO) 4.7 % (0.0-8.0); HEMATOCRIT 25.5 % (36-48); MEAN CORPUSCULAR HEMOGLOBIN 31.8 pg (27.0-33.0); MEAN CORPUSCULAR HGB CONC 30.6 g/dL (32.0-36.0); MEAN CORPUSCULAR VOLUME 104.1 fL (79-99); MONOCYTES % (AUTO) 5.2 % (3.0-13.0); NEUTROPHILS % (AUTO) 74.3 % (40.0-77.0); PLATELET COUNT (AUTO) 284 K/uL (130-400); RED BLOOD CELL COUNT(AUTO) 2.45 MIL/uL (4.00-5.50); WHITE BLOOD COUNT (AUTO) 6.2 K/uL (4.8-10.8)
[2020-06-28 06:26] LABS: ALBUMIN 1.7 g/dL (3.5-5.0); BILIRUBIN,TOTAL 0.4 mg/dL (0.2-1.0); CREATININE 0.4 mg/dL (0.5-1.5); CRP QUANTITATIVE 86.6 mg/L (0.00-9.0); POTASSIUM 3.3 mmol/L (3.5-5.1); TOTAL PROTEIN, SERUM 5.6 g/dL (6.0-8.3)
[2020-06-28 07:18] LABS: ABG BASE EXCESS 13.6 mmol/L (-2.0-3.0); ABG HCO3 41.1 mmol/L (21.0-28.0); ABG OXYGEN SATURATION 94.8 % (95.0-99.0); ABG PCO2 63 mmHg (32-45)
[2020-06-28] MEDS: INSULIN HUMULIN R 100 UNIT/ML 3ML SQ SCH ×4 (07:30→21:00)
[2020-06-28] MEDS ORDERED: POTASSIUM CHLORIDE 10% ELIXIR 20 MEQ/15 ML UDCUP ONE (07:47)
[2020-06-28] MEDS: SOLU-MEDROL 40MG VIAL IVP SCH ×2 (07:51→20:17)
[2020-06-28] MEDS: Vitamin B Complex/Vit C/Folic Acid PO SCH (07:53)
[2020-06-28] MEDS: FUROSEMIDE 20MG VIAL IV SCH ×2 (07:53→20:07)
[2020-06-28] MEDS: ENOXAPARIN SODIUM 40 MG/0.4 ML SYRINGE SQ SCH ×2 (07:53→20:08)
[2020-06-28] MEDS: ASPIRIN 81MG CHEW TAB PO SCH (07:53)
[2020-06-28] MEDS: THIAMINE HCL 100 MG/ML 2ML VIAL IVP SCH (07:53)
[2020-06-28] MEDS: DOCUSATE NA 100MG/10ML UDCUP PO SCH ×2 (07:54→20:07)
[2020-06-28] MEDS: LOSARTAN 100 MG TABLET PO SCH (07:55)
[2020-06-28] MEDS: HYDROCHLOROTHIAZIDE 25 MG TABLET PO SCH (07:56)
[2020-06-28] MEDS: PANTOPRAZOLE 40 MG/VIAL IVP SCH ×2 (07:58→20:07)
[2020-06-28] MEDS: FENTANYL 2500MCG+NS 250ML 250 ML IV SCH (17:58)
[2020-06-28] MEDS: POTASSIUM CHLORIDE 20MEQ/100ML 100 ML IV PRN (18:35)
[2020-06-28 23:23] LABS: ABG BASE EXCESS 15.9 mmol/L (-2.0-3.0); ABG OXYGEN SATURATION 88.8 % (95.0-99.0); ABG PCO2 61 mmHg (32-45)
[2020-06-29] VITALS (78 sets, daily range): BP systolic 95–146; BP diastolic 53–75
[2020-06-29] MEDS: DIAZEPAM 5 MG TABLET GT SCH ×4 (01:56→20:20)
[2020-06-29] MEDS: MIDAZOLAM 100MG-0.9% NS 100ML 100 ML IV SCH ×2 (01:58→14:42)
[2020-06-29] MEDS: PROPOFOL 1000 MG/100 ML IV PRN ×4 (01:59→19:49)
[2020-06-29] MEDS: CHLORHEXIDINE GLUCONATE 473 ML MOUTHWASH MM SCH ×4 (04:11→22:19)
[2020-06-29 05:17] LABS: BASOPHILS % (AUTO) 0.3 % (0.0-5.0); EOSINOPHILS % (AUTO) 7.5 % (0.0-8.0); HEMATOCRIT 27.4 % (36-48); MEAN CORPUSCULAR HEMOGLOBIN 32.2 pg (27.0-33.0); MEAN CORPUSCULAR HGB CONC 30.7 g/dL (32.0-36.0); MONOCYTES % (AUTO) 5.2 % (3.0-13.0); NEUTROPHILS % (AUTO) 67.7 % (40.0-77.0); PLATELET COUNT (AUTO) 324 K/uL (130-400); RED BLOOD CELL COUNT(AUTO) 2.61 MIL/uL (4.00-5.50); WHITE BLOOD COUNT (AUTO) 7.3 K/uL (4.8-10.8)
[2020-06-29 05:40] LABS: ALBUMIN 1.9 g/dL (3.5-5.0); BILIRUBIN,TOTAL 0.5 mg/dL (0.2-1.0); CREATININE 0.4 mg/dL (0.5-1.5); CRP QUANTITATIVE 61.4 mg/L (0.00-9.0); POTASSIUM 3.8 mmol/L (3.5-5.1); THYROID STIMULATING HORMONE 2.55 uIU/mL (0.36-3.74); TOTAL PROTEIN, SERUM 5.9 g/dL (6.0-8.3)
[2020-06-29 05:51] LABS: B-TYPE NATRIURETIC PEPTIDE 60 pg/mL (0-100)
[2020-06-29] MEDS: INSULIN HUMULIN R 100 UNIT/ML 3ML SQ SCH ×3 (06:34→21:00)
[2020-06-29] MEDS: SOLU-MEDROL 40MG VIAL IVP SCH ×2 (08:08→20:19)
[2020-06-29] MEDS: Vitamin B Complex/Vit C/Folic Acid PO SCH (08:08)
[2020-06-29] MEDS: FUROSEMIDE 20MG VIAL IV SCH ×2 (08:08→20:19)
[2020-06-29] MEDS: ENOXAPARIN SODIUM 40 MG/0.4 ML SYRINGE SQ SCH ×2 (08:09→20:20)
[2020-06-29] MEDS: ASPIRIN 81MG CHEW TAB PO SCH (08:10)
[2020-06-29] MEDS: DOCUSATE NA 100MG/10ML UDCUP PO SCH ×2 (08:10→20:18)
[2020-06-29] MEDS: POTASSIUM CHLORIDE 20MEQ/100ML 100 ML IV PRN ×2 (08:11→18:17)
[2020-06-29] MEDS: PANTOPRAZOLE 40 MG/VIAL IVP SCH ×2 (08:20→20:18)
[2020-06-29] MEDS: LOSARTAN 100 MG TABLET PO SCH (08:21)
[2020-06-29] MEDS: HYDROCHLOROTHIAZIDE 25 MG TABLET PO SCH (08:21)
[2020-06-30] VITALS (77 sets, daily range): BP systolic 80–141; BP diastolic 39–73
[2020-06-30] MEDS: PROPOFOL 1000 MG/100 ML IV PRN ×2 (00:17→04:44)
[2020-06-30] MEDS: DIAZEPAM 5 MG TABLET GT SCH ×4 (01:24→18:10)
[2020-06-30] MEDS ORDERED: FENTANYL 2500MCG+NS 250ML 250 ML IV ONE (01:59)
[2020-06-30] MEDS: MIDAZOLAM 100MG-0.9% NS 100ML 100 ML IV SCH ×2 (04:14→19:59)
[2020-06-30] MEDS: CHLORHEXIDINE GLUCONATE 473 ML MOUTHWASH MM SCH ×4 (04:17→21:43)
[2020-06-30 04:24] LABS: BASOPHILS % (AUTO) 0.3 % (0.0-5.0); EOSINOPHILS % (AUTO) 7.6 % (0.0-8.0); HEMATOCRIT 27.4 % (36-48); LYMPHOCYTES % (AUTO) 13.6 % (21.0-51.0); MEAN CORPUSCULAR HEMOGLOBIN 31.3 pg (27.0-33.0); MEAN CORPUSCULAR HGB CONC 29.6 g/dL (32.0-36.0); MEAN CORPUSCULAR VOLUME 105.8 fL (79-99); MONOCYTES % (AUTO) 4.9 % (3.0-13.0); NEUTROPHILS % (AUTO) 67.4 % (40.0-77.0); PLATELET COUNT (AUTO) 349 K/uL (130-400); RED BLOOD CELL COUNT(AUTO) 2.59 MIL/uL (4.00-5.50); RED CELL DISTRIBUTION WIDTH 17.4 % (11.0-15.5); WHITE BLOOD COUNT (AUTO) 7.6 K/uL (4.8-10.8)
[2020-06-30 04:53] LABS: BILIRUBIN,TOTAL 0.4 mg/dL (0.2-1.0); CREATININE 0.5 mg/dL (0.5-1.5); CRP QUANTITATIVE 59.1 mg/L (0.00-9.0); MAGNESIUM 2.3 mg/dL (1.80-2.40); PHOSPHORUS 4.8 mg/dL (2.5-4.9); POTASSIUM 4.1 mmol/L (3.5-5.1)
[2020-06-30 05:02] LABS: B-TYPE NATRIURETIC PEPTIDE 48 pg/mL (0-100)
[2020-06-30] MEDS: INSULIN HUMULIN R 100 UNIT/ML 3ML SQ SCH ×3 (06:05→16:45)
[2020-06-30] MEDS: DOCUSATE NA 100MG/10ML UDCUP PO SCH ×2 (09:05→20:53)
[2020-06-30] MEDS: LOSARTAN 100 MG TABLET PO SCH (09:05)
[2020-06-30] MEDS: HYDROCHLOROTHIAZIDE 25 MG TABLET PO SCH (09:05)
[2020-06-30] MEDS: SOLU-MEDROL 40MG VIAL IVP SCH ×2 (09:06→21:18)
[2020-06-30] MEDS: FUROSEMIDE 20MG VIAL IV SCH ×2 (09:06→20:15)
[2020-06-30] MEDS: ASPIRIN 81MG CHEW TAB PO SCH (09:07)
[2020-06-30] MEDS: PANTOPRAZOLE 40 MG/VIAL IVP SCH ×2 (09:08→21:00)
[2020-06-30] MEDS: ENOXAPARIN SODIUM 40 MG/0.4 ML SYRINGE SQ SCH ×2 (09:09→21:17)
[2020-06-30] MEDS ORDERED: PROPOFOL 1000 MG/100 ML 100 ML IV ONE (09:38)
[2020-06-30] MEDS ORDERED: PROPOFOL 1000 MG/100 ML IV PRN (10:15)
[2020-06-30 10:58] LABS: ABG BASE EXCESS 14.2 mmol/L (-2.0-3.0); ABG HCO3 40.8 mmol/L (21.0-28.0); ABG OXYGEN SATURATION 93.7 % (95.0-99.0); ABG PCO2 58 mmHg (32-45)
[2020-06-30] MEDS: PROPOFOL 1000 MG/100 ML 100 ML IV PRN ×2 (14:42→18:11)
[2020-06-30] MEDS ORDERED: ALBUMIN (HUMAN) 25% 50 ML IV SCH (21:00)
[2020-07-01] VITALS (75 sets, daily range): BP systolic 109–132; BP diastolic 55–70
[2020-07-01] MEDS: INSULIN HUMULIN R 100 UNIT/ML 3ML SQ SCH ×5 (00:30→21:00)
[2020-07-01] MEDS: DIAZEPAM 5 MG TABLET GT SCH ×4 (01:38→20:49)
[2020-07-01] MEDS: PROPOFOL 1000 MG/100 ML 100 ML IV PRN ×4 (01:50→20:51)
[2020-07-01] MEDS: CHLORHEXIDINE GLUCONATE 473 ML MOUTHWASH MM SCH ×4 (04:35→21:27)
[2020-07-01] MEDS: ASPIRIN 81MG CHEW TAB PO SCH (07:47)
[2020-07-01] MEDS: ENOXAPARIN SODIUM 40 MG/0.4 ML SYRINGE SQ SCH ×2 (07:48→20:50)
[2020-07-01] MEDS: DOCUSATE NA 100MG/10ML UDCUP PO SCH ×2 (07:48→20:49)
[2020-07-01] MEDS: PANTOPRAZOLE 40 MG/VIAL IVP SCH ×2 (07:48→20:49)
[2020-07-01] MEDS: HYDROCHLOROTHIAZIDE 25 MG TABLET PO SCH (07:49)
[2020-07-01] MEDS ORDERED: LOSARTAN 100 MG TABLET PO SCH (09:00)
[2020-07-01] MEDS ORDERED: FENTANYL 2500MCG+NS 250ML 250 ML IV ONE (12:33)
[2020-07-02] VITALS (50 sets, daily range): BP systolic 93–160; BP diastolic 44–77
[2020-07-02] MEDS: MIDAZOLAM 100MG-0.9% NS 100ML 100 ML IV SCH ×2 (01:12→14:37)
[2020-07-02] MEDS: DIAZEPAM 5 MG TABLET GT SCH ×4 (01:12→20:22)
[2020-07-02] MEDS: PROPOFOL 1000 MG/100 ML 100 ML IV PRN ×4 (02:50→16:27)
[2020-07-02] MEDS: CHLORHEXIDINE GLUCONATE 473 ML MOUTHWASH MM SCH ×4 (03:21→22:06)
[2020-07-02 03:54] LABS: ABG BASE EXCESS 11.9 mmol/L (-2.0-3.0); ABG HCO3 38.6 mmol/L (21.0-28.0); ABG OXYGEN SATURATION 93.7 % (95.0-99.0); ABG PCO2 58 mmHg (32-45)
[2020-07-02 05:46] LABS: BASOPHILS % (AUTO) 0.3 % (0.0-5.0); EOSINOPHILS % (AUTO) 7.1 % (0.0-8.0); HEMATOCRIT 26.4 % (36-48); LYMPHOCYTES % (AUTO) 11.3 % (21.0-51.0); MEAN CORPUSCULAR HEMOGLOBIN 31.5 pg (27.0-33.0); MEAN CORPUSCULAR HGB CONC 29.9 g/dL (32.0-36.0); MEAN CORPUSCULAR VOLUME 105.2 fL (79-99); MONOCYTES % (AUTO) 4.9 % (3.0-13.0); NEUTROPHILS % (AUTO) 72.4 % (40.0-77.0); NUCLEATED RED BLOOD CELLS 0.2 % (0.0-0.19); PLATELET COUNT (AUTO) 332 K/uL (130-400); RED BLOOD CELL COUNT(AUTO) 2.51 MIL/uL (4.00-5.50); RED CELL DISTRIBUTION WIDTH 17.1 % (11.0-15.5); WHITE BLOOD COUNT (AUTO) 10.1 K/uL (4.8-10.8)
[2020-07-02 06:34] LABS: BILIRUBIN,TOTAL 0.5 mg/dL (0.2-1.0); CREATININE 0.4 mg/dL (0.5-1.5); CRP QUANTITATIVE 99.6 mg/L (0.00-9.0); TOTAL PROTEIN, SERUM 5.9 g/dL (6.0-8.3)
[2020-07-02] MEDS: INSULIN HUMULIN R 100 UNIT/ML 3ML SQ SCH ×4 (06:34→21:00)
[2020-07-02] MEDS: ENOXAPARIN SODIUM 40 MG/0.4 ML SYRINGE SQ SCH ×2 (08:12→20:23)
[2020-07-02] MEDS: METOPROLOL TARTRATE 25 MG TAB PO SCH ×2 (08:12→22:05)
[2020-07-02] MEDS: DOCUSATE NA 100MG/10ML UDCUP PO SCH ×2 (08:13→20:22)
[2020-07-02] MEDS: ASPIRIN 81MG CHEW TAB PO SCH (08:13)
[2020-07-02] MEDS: PANTOPRAZOLE 40 MG/VIAL IVP SCH ×2 (08:15→20:23)
[2020-07-02] MEDS: POTASSIUM CHLORIDE 20MEQ/100ML 100 ML IV SCH (11:50)
[2020-07-02] MEDS ORDERED: MIDAZOLAM 100MG-0.9% NS 100ML 100ML BAG IV SCH (14:30)
[2020-07-02] MEDS ORDERED: FENTANYL CITRATE PF 0.05 MG/ML 1,000 MCG in 0.9%NACL 100ML 250 ML IVPB SCH (14:30)
[2020-07-02] MEDS: FENTANYL 2500MCG+NS 250ML 250 ML IV SCH (20:38)
[2020-07-03] VITALS (53 sets, daily range): BP systolic 88–138; BP diastolic 45–69
[2020-07-03] MEDS: DIAZEPAM 5 MG TABLET GT SCH ×4 (01:40→21:45)
[2020-07-03] MEDS: PROPOFOL 1000 MG/100 ML 100 ML IV PRN ×4 (01:41→19:31)
[2020-07-03] MEDS: CHLORHEXIDINE GLUCONATE 473 ML MOUTHWASH MM SCH ×4 (03:57→22:40)
[2020-07-03 05:44] LABS: BASOPHILS % (AUTO) 0.6 % (0.0-5.0); HEMATOCRIT 26.1 % (36-48); LYMPHOCYTES % (AUTO) 15.4 % (21.0-51.0); MEAN CORPUSCULAR HEMOGLOBIN 31.3 pg (27.0-33.0); MEAN CORPUSCULAR HGB CONC 29.9 g/dL (32.0-36.0); MEAN CORPUSCULAR VOLUME 104.8 fL (79-99); MONOCYTES % (AUTO) 4.8 % (3.0-13.0); NEUTROPHILS % (AUTO) 66.9 % (40.0-77.0); NUCLEATED RED BLOOD CELLS 0.2 % (0.0-0.19); PLATELET COUNT (AUTO) 330 K/uL (130-400); RED BLOOD CELL COUNT(AUTO) 2.49 MIL/uL (4.00-5.50); RED CELL DISTRIBUTION WIDTH 17.2 % (11.0-15.5); WHITE BLOOD COUNT (AUTO) 9.5 K/uL (4.8-10.8)
[2020-07-03 06:00] LABS: B-TYPE NATRIURETIC PEPTIDE 228 pg/mL (0-100)
[2020-07-03 06:01] LABS: ALBUMIN 1.9 g/dL (3.5-5.0); BILIRUBIN,TOTAL 0.5 mg/dL (0.2-1.0); CREATININE 0.4 mg/dL (0.5-1.5); MAGNESIUM 1.9 mg/dL (1.80-2.40); POTASSIUM 3.8 mmol/L (3.5-5.1); TOTAL PROTEIN, SERUM 5.8 g/dL (6.0-8.3)
[2020-07-03] MEDS: INSULIN HUMULIN R 100 UNIT/ML 3ML SQ SCH ×4 (06:21→21:00)
[2020-07-03 06:56] LABS: ABG BASE EXCESS 10.7 mmol/L (-2.0-3.0); ABG HCO3 39.7 mmol/L (21.0-28.0); ABG OXYGEN SATURATION 93.5 % (95.0-99.0); ABG PCO2 73 mmHg (32-45)
[2020-07-03] MEDS: PANTOPRAZOLE 40 MG/VIAL IVP SCH ×2 (09:07→21:32)
[2020-07-03] MEDS: DOCUSATE NA 100MG/10ML UDCUP PO SCH ×2 (09:08→21:32)
[2020-07-03] MEDS: METOPROLOL TARTRATE 25 MG TAB PO SCH ×2 (09:08→21:46)
[2020-07-03] MEDS: ASPIRIN 81MG CHEW TAB PO SCH (09:08)
[2020-07-03] MEDS: ENOXAPARIN SODIUM 40 MG/0.4 ML SYRINGE SQ SCH ×2 (09:09→21:44)
[2020-07-03] MEDS: MIDAZOLAM 100MG-0.9% NS 100ML 100 ML IV SCH (09:11)
[2020-07-03] MEDS: POTASSIUM CHLORIDE 20MEQ/100ML 100 ML IV SCH (11:56)
[2020-07-03] MEDS: ACETAMINOPHEN 650 MG/20.3 ML UDCUP NG PRN (11:57)
[2020-07-04] VITALS (65 sets, daily range): BP systolic 101–147; BP diastolic 51–80
[2020-07-04] MEDS: PROPOFOL 1000 MG/100 ML 100 ML IV PRN ×5 (02:07→22:24)
[2020-07-04] MEDS: MIDAZOLAM 100MG-0.9% NS 100ML 100 ML IV SCH ×3 (02:08→21:21)
[2020-07-04] MEDS: FENTANYL 2500MCG+NS 250ML 250 ML IV SCH ×2 (02:09→22:24)
[2020-07-04] MEDS: DIAZEPAM 5 MG TABLET GT SCH ×4 (02:10→21:19)
[2020-07-04] MEDS: CHLORHEXIDINE GLUCONATE 473 ML MOUTHWASH MM SCH ×4 (04:47→22:39)
[2020-07-04 06:24] LABS: BASOPHILS % (AUTO) 0.6 % (0.0-5.0); EOSINOPHILS % (AUTO) 6.1 % (0.0-8.0); HEMATOCRIT 27.1 % (36-48); MEAN CORPUSCULAR HEMOGLOBIN 31.7 pg (27.0-33.0); MEAN CORPUSCULAR VOLUME 102.3 fL (79-99); MONOCYTES % (AUTO) 5.2 % (3.0-13.0); NEUTROPHILS % (AUTO) 75.1 % (40.0-77.0); NUCLEATED RED BLOOD CELLS 0.3 % (0.0-0.19); PLATELET COUNT (AUTO) 285 K/uL (130-400); RED BLOOD CELL COUNT(AUTO) 2.65 MIL/uL (4.00-5.50); RED CELL DISTRIBUTION WIDTH 17.1 % (11.0-15.5); WHITE BLOOD COUNT (AUTO) 11.4 K/uL (4.8-10.8)
[2020-07-04 07:00] LABS: CREATININE 0.3 mg/dL (0.5-1.5); MAGNESIUM 1.8 mg/dL (1.80-2.40); POTASSIUM 4.3 mmol/L (3.5-5.1)
[2020-07-04] MEDS: INSULIN HUMULIN R 100 UNIT/ML 3ML SQ SCH ×4 (07:30→22:41)
[2020-07-04] MEDS: DOCUSATE NA 100MG/10ML UDCUP PO SCH (08:04)
[2020-07-04] MEDS: METOPROLOL TARTRATE 25 MG TAB PO SCH ×2 (08:04→22:38)
[2020-07-04] MEDS: ASPIRIN 81MG CHEW TAB PO SCH (08:04)
[2020-07-04] MEDS: PANTOPRAZOLE 40 MG/VIAL IVP SCH ×2 (08:06→21:17)
[2020-07-04] MEDS: ENOXAPARIN SODIUM 40 MG/0.4 ML SYRINGE SQ SCH ×2 (08:07→21:20)
[2020-07-04] MEDS: ACETAMINOPHEN 650 MG/20.3 ML UDCUP NG PRN (09:04)
[2020-07-04] MEDS: MAGNESIUM 2GM PREMIX 50ML 50 ML IV PRN (13:14)
[2020-07-05] VITALS (65 sets, daily range): BP systolic 93–158; BP diastolic 49–74
[2020-07-05] MEDS: CHLORHEXIDINE GLUCONATE 473 ML MOUTHWASH MM SCH ×4 (04:15→22:15)
[2020-07-05 06:22] LABS: BASOPHILS % (AUTO) 0.7 % (0.0-5.0); EOSINOPHILS % (AUTO) 4.2 % (0.0-8.0); HEMATOCRIT 28.3 % (36-48); LYMPHOCYTES % (AUTO) 12.7 % (21.0-51.0); MEAN CORPUSCULAR HEMOGLOBIN 31.9 pg (27.0-33.0); MEAN CORPUSCULAR HGB CONC 30.4 g/dL (32.0-36.0); MEAN CORPUSCULAR VOLUME 104.8 fL (79-99); MONOCYTES % (AUTO) 6.4 % (3.0-13.0); NUCLEATED RED BLOOD CELLS 0.8 % (0.0-0.19); PLATELET COUNT (AUTO) 339 K/uL (130-400); RED CELL DISTRIBUTION WIDTH 17.2 % (11.0-15.5); WHITE BLOOD COUNT (AUTO) 12.3 K/uL (4.8-10.8)
[2020-07-05 06:36] LABS: ALBUMIN 1.8 g/dL (3.5-5.0); BILIRUBIN,TOTAL 0.6 mg/dL (0.2-1.0); CREATININE 0.3 mg/dL (0.5-1.5); PHOSPHORUS 2.4 mg/dL (2.5-4.9); POTASSIUM 4.5 mmol/L (3.5-5.1); TOTAL PROTEIN, SERUM 6.1 g/dL (6.0-8.3)
[2020-07-05] MEDS: INSULIN HUMULIN R 100 UNIT/ML 3ML SQ SCH (07:30)
[2020-07-05] MEDS: DIAZEPAM 5 MG TABLET GT SCH ×2 (08:10→13:12)
[2020-07-05] MEDS: ASPIRIN 81MG CHEW TAB PO SCH (08:10)
[2020-07-05] MEDS: ACETAMINOPHEN 650 MG/20.3 ML UDCUP NG PRN ×2 (08:11→15:00)
[2020-07-05] MEDS: METOPROLOL TARTRATE 25 MG TAB PO SCH (08:11)
[2020-07-05] MEDS: ENOXAPARIN SODIUM 40 MG/0.4 ML SYRINGE SQ SCH (08:12)
[2020-07-05 08:58] LABS: INR 0.98 (0.85-1.15); PROTHROMBIN TIME 10.5 SEC (9.6-11.6)
[2020-07-05] MEDS: PANTOPRAZOLE 40 MG/VIAL IVP SCH (08:59)
[2020-07-05] MEDS ORDERED: VANCOMYCIN PROTOCOL PER PHARMACY IV SCH (14:15)
[2020-07-05] MEDS: ZOSYN 3.375GM+NS 50ML 50 ML IV SCH (14:54)
[2020-07-05] MEDS: VANCOMYCIN 1G/250ML KIT 250 ML IV SCH (14:55)
[2020-07-05] MEDS: PROPOFOL 1000 MG/100 ML 100 ML IV PRN ×2 (15:38→20:34)
[2020-07-05] MEDS: MIDAZOLAM 100MG-0.9% NS 100ML 100 ML IV SCH (16:41)
[2020-07-06] VITALS (58 sets, daily range): BP systolic 65–138; BP diastolic 35–68
[2020-07-06] MEDS: PANTOPRAZOLE 40 MG/VIAL IVP SCH ×3 (00:35→21:11)
[2020-07-06] MEDS: METOPROLOL TARTRATE 25 MG TAB PO SCH ×3 (00:35→20:55)
[2020-07-06] MEDS: ENOXAPARIN SODIUM 40 MG/0.4 ML SYRINGE SQ SCH ×3 (00:35→20:55)
[2020-07-06] MEDS: VANCOMYCIN 1G/250ML KIT 250 ML IV SCH ×3 (00:36→17:48)
[2020-07-06] MEDS: ZOSYN 3.375GM+NS 50ML 50 ML IV SCH ×2 (00:36→06:17)
[2020-07-06] MEDS: DIAZEPAM 5 MG TABLET GT SCH ×5 (00:36→20:56)
[2020-07-06] MEDS: PROPOFOL 1000 MG/100 ML 100 ML IV PRN ×4 (03:35→21:00)
[2020-07-06] MEDS: MIDAZOLAM 100MG-0.9% NS 100ML 100 ML IV SCH ×3 (03:35→20:59)
[2020-07-06] MEDS: FENTANYL 2500MCG+NS 250ML 250 ML IV SCH ×2 (03:36→20:57)
[2020-07-06 03:52] LABS: ABG BASE EXCESS 8.4 mmol/L (-2.0-3.0); ABG HCO3 38.1 mmol/L (21.0-28.0); ABG OXYGEN SATURATION 91.2 % (95.0-99.0); ABG PCO2 78 mmHg (32-45)
[2020-07-06] MEDS: CHLORHEXIDINE GLUCONATE 473 ML MOUTHWASH MM SCH ×4 (04:20→22:15)
[2020-07-06 05:08] LABS: BASOPHILS % (AUTO) 0.7 % (0.0-5.0); EOSINOPHILS % (AUTO) 3.8 % (0.0-8.0); HEMATOCRIT 25.9 % (36-48); LYMPHOCYTES % (AUTO) 5.1 % (21.0-51.0); MEAN CORPUSCULAR HEMOGLOBIN 30.9 pg (27.0-33.0); MEAN CORPUSCULAR HGB CONC 29.7 g/dL (32.0-36.0); MONOCYTES % (AUTO) 5.3 % (3.0-13.0); NEUTROPHILS % (AUTO) 82.4 % (40.0-77.0); NUCLEATED RED BLOOD CELLS 0.8 % (0.0-0.19); PLATELET COUNT (AUTO) 222 K/uL (130-400); RED BLOOD CELL COUNT(AUTO) 2.49 MIL/uL (4.00-5.50); RED CELL DISTRIBUTION WIDTH 17.2 % (11.0-15.5); WHITE BLOOD COUNT (AUTO) 11.6 K/uL (4.8-10.8)
[2020-07-06 05:44] LABS: ALBUMIN 1.8 g/dL (3.5-5.0); BILIRUBIN,TOTAL 0.9 mg/dL (0.2-1.0); CREATININE 0.3 mg/dL (0.5-1.5); MAGNESIUM 2.6 mg/dL (1.80-2.40); PHOSPHORUS 2.6 mg/dL (2.5-4.9); POTASSIUM 4.5 mmol/L (3.5-5.1); TOTAL PROTEIN, SERUM 5.4 g/dL (6.0-8.3)
[2020-07-06] MEDS ORDERED: HYDROCHLOROTHIAZIDE 25 MG TABLET PO SCH (09:00)
[2020-07-06] MEDS ORDERED: CITALOPRAM 20 MG TABLET PO SCH (09:00)
[2020-07-06] MEDS ORDERED: LOSARTAN 100 MG TABLET PO SCH (09:00)
[2020-07-06] MEDS: ASPIRIN 81MG CHEW TAB PO SCH (09:47)
[2020-07-06] MEDS: ACETAMINOPHEN 650 MG/20.3 ML UDCUP NG PRN (09:47)
[2020-07-06] MEDS ORDERED: PHARMACY COMMUNICATION MISC SCH ×2 (10:15→11:00)
[2020-07-06] MEDS: MEROPENEM 1 GM VIAL IVP SCH ×2 (11:35→18:21)
[2020-07-06] MEDS: INSULIN HUMULIN R 100 UNIT/ML 3ML SQ SCH ×2 (17:30→23:15)
[2020-07-07] VITALS (44 sets, daily range): BP systolic 0–101; BP diastolic 0–70
[2020-07-07] MEDS: VANCOMYCIN 1G/250ML KIT 250 ML IV SCH (01:30)
[2020-07-07] MEDS: DIAZEPAM 5 MG TABLET GT SCH (04:27)
[2020-07-07] MEDS: MEROPENEM 1 GM VIAL IVP SCH (04:30)
[2020-07-07] MEDS: CHLORHEXIDINE GLUCONATE 473 ML MOUTHWASH MM SCH (04:31)
[2020-07-07] MEDS: INSULIN HUMULIN R 100 UNIT/ML 3ML SQ SCH (05:15)
[2020-07-07 05:57] LABS: BASOPHILS % (AUTO) 0.8 % (0.0-5.0); EOSINOPHILS % (AUTO) 0.4 % (0.0-8.0); HEMATOCRIT 26.9 % (36-48); LYMPHOCYTES % (AUTO) 9.7 % (21.0-51.0); MEAN CORPUSCULAR HEMOGLOBIN 31.8 pg (27.0-33.0); MEAN CORPUSCULAR VOLUME 109.8 fL (79-99); MONOCYTES % (AUTO) 10.8 % (3.0-13.0); NUCLEATED RED BLOOD CELLS 12.4 % (0.0-0.19); PLATELET COUNT (AUTO) 170 K/uL (130-400); RED BLOOD CELL COUNT(AUTO) 2.45 MIL/uL (4.00-5.50); RED CELL DISTRIBUTION WIDTH 17.2 % (11.0-15.5); WHITE BLOOD COUNT (AUTO) 20.7 K/uL (4.8-10.8)
[2020-07-07] MEDS ORDERED: DEXTROSE 50%-WATER 50 ML DISP.SYRIN IV ONE (06:03)
[2020-07-07 06:07] LABS: CREATININE 0.9 mg/dL (0.5-1.5)
[2020-07-07 06:19] LABS: POTASSIUM 6.7 mmol/L (3.5-5.1)
[2020-07-07 06:57] LABS: BAND NEUTROPHILS % (MANUAL) 15 % (0-2); LYMPHOCYTES % (MANUAL) 13 % (22-44); MAN.DIFF COMMENT-IMPRESSION MANUAL DIFFERENTIAL; METAMYELOCYTES % 5 % (0-0); MONOCYTES % (MANUAL) 16 % (2-9); MYELOCYTES % 4 % (0-0); PLATELET MORPHOLOGY COMMENT ADEQUATE; SEGMENTED NEUTROPHILS % 47 % (40-70)
== END 2020-07-07 07:38 | disposition expired | DRG 207 ==
LOC: EDH 22:07 → EDHIP 23:55 → 2CV 05-28 17:36 → 2AH 05-30 14:48 → 2BH 06-01 13:28
PROVIDERS: ADMIT Family Medicine; ATTEND Family Medicine
PROC: 02HV33Z Insertion of Infusion Device into Superior Vena Cava, Percutaneous Approach (ICD-10-PCS; 2020-05-28)
PROC: B548ZZA Ultrasonography of Superior Vena Cava, Guidance (ICD-10-PCS; 2020-05-28)
PROC: 5A09357 Assistance with Respiratory Ventilation, Less than 24 Consecutive Hours, Continuous Positive Airway Pressure (ICD-10-PCS; 2020-05-28)
PROC: 5A0935A Assistance with Respiratory Ventilation, Less than 24 Consecutive Hours, High Flow/Velocity Cannula (ICD-10-PCS; 2020-05-28)
PROC: XW13325 Transfusion of Convalescent Plasma (Nonautologous) into Peripheral Vein, Percutaneous Approach, New Technology Group 5 (ICD-10-PCS; 2020-05-29)
PROC: 5A0935A Assistance with Respiratory Ventilation, Less than 24 Consecutive Hours, High Flow/Velocity Cannula (ICD-10-PCS; 2020-05-29)
PROC: XW033E5 Introduction of Remdesivir Anti-infective into Peripheral Vein, Percutaneous Approach, New Technology Group 5 (ICD-10-PCS; 2020-05-30)
PROC: 5A0935A Assistance with Respiratory Ventilation, Less than 24 Consecutive Hours, High Flow/Velocity Cannula (ICD-10-PCS; 2020-05-30)
PROC: 5A09357 Assistance with Respiratory Ventilation, Less than 24 Consecutive Hours, Continuous Positive Airway Pressure (ICD-10-PCS; 2020-05-30)
PROC: 5A0935A Assistance with Respiratory Ventilation, Less than 24 Consecutive Hours, High Flow/Velocity Cannula (ICD-10-PCS; 2020-05-31)
PROC: 5A09357 Assistance with Respiratory Ventilation, Less than 24 Consecutive Hours, Continuous Positive Airway Pressure (ICD-10-PCS; 2020-05-31)
PROC: 5A1955Z Respiratory Ventilation, Greater than 96 Consecutive Hours (ICD-10-PCS; principal; 2020-06-01)
PROC: 0BH17EZ Insertion of Endotracheal Airway into Trachea, Via Natural or Artificial Opening (ICD-10-PCS; 2020-06-01)
PROC: 5A0935A Assistance with Respiratory Ventilation, Less than 24 Consecutive Hours, High Flow/Velocity Cannula (ICD-10-PCS; 2020-06-01)
PROC: 02HV33Z Insertion of Infusion Device into Superior Vena Cava, Percutaneous Approach (ICD-10-PCS; 2020-06-11)
PROC: B548ZZA Ultrasonography of Superior Vena Cava, Guidance (ICD-10-PCS; 2020-06-11)
PROC: 30233N1 Transfusion of Nonautologous Red Blood Cells into Peripheral Vein, Percutaneous Approach (ICD-10-PCS; 2020-06-11)
DX: U07.1 COVID-19 (principal); J80 Acute respiratory distress syndrome; E43 Unspecified severe protein-calorie malnutrition; J12.82 Pneumonia due to coronavirus disease 2019; J15.6 Pneumonia due to other Gram-negative bacteria; A41.50 Gram-negative sepsis, unspecified; J44.0 Chronic obstructive pulmonary disease with (acute) lower respiratory infection; J44.1 Chronic obstructive pulmonary disease with (acute) exacerbation; N17.9 Acute kidney failure, unspecified; E66.2 Morbid (severe) obesity with alveolar hypoventilation; I13.0 Hypertensive heart and chronic kidney disease with heart failure and stage 1 through stage 4 chronic kidney disease, or unspecified chronic kidney disease; I82.621 Acute embolism and thrombosis of deep veins of right upper extremity; K92.2 Gastrointestinal hemorrhage, unspecified; E87.1 Hypo-osmolality and hyponatremia; E87.3 Alkalosis; G93.40 Encephalopathy, unspecified; Z68.41 Body mass index [BMI] 40.0-44.9, adult; I82.A11 Acute embolism and thrombosis of right axillary vein; D62 Acute posthemorrhagic anemia; E87.0 Hyperosmolality and hypernatremia; Z66 Do not resuscitate; E11.22 Type 2 diabetes mellitus with diabetic chronic kidney disease; N18.30 Chronic kidney disease, stage 3 unspecified; E11.65 Type 2 diabetes mellitus with hyperglycemia; E87.5 Hyperkalemia; E87.6 Hypokalemia; F41.9 Anxiety disorder, unspecified; G83.9 Paralytic syndrome, unspecified; J84.10 Pulmonary fibrosis, unspecified; T38.0X5A Adverse effect of glucocorticoids and synthetic analogues, initial encounter; Z86.718 Personal history of other venous thrombosis and embolism; Z87.891 Personal history of nicotine dependence; Z90.710 Acquired absence of both cervix and uterus; Z90.49 Acquired absence of other specified parts of digestive tract; Z91.041 Radiographic dye allergy status; Y92.89 Other specified places as the place of occurrence of the external cause
CPT/HCPCS: 31500; 36415; 36430; 36600; 71045; 74018; 80048; 80053; 80061; 80076; 80202; 81001; 82270; 82435; 82550; 82728; 82803; 82947; 82948; 83036; 83540; 83550; 83605; 83615; 83690; 83735; 83880; 84100; 84132; 84145; 84295; 84443; 84484; 84550; 85014; 85018; 85025; 85027; 85045; 85378; 85610; 85730; 86140; 86850; 86900; 86901; 86923; 86927; 87040; 87071; 87077; 87186; 87205; 87426; 87804; 87880; 93005; 93971; 94002; 94003; 94660; C1751; C1894; C9113; G0378; J0360; J0456; J0696; J1100; J1650; J1815; J1940; J2060; J2185; J2250; J2370; J2543; J2704; J2920; J2997; J3010; J3370; J3411; J3475; J3480; J3490; J7030; J7050; J7070; P9016; P9047; U0003